=== PATIENT | male | born 1940 | race Asian ===

== ENCOUNTER 2016-08-24 13:18 | Inpatient (IN) | payer MEDICAID, OTHER ==
[~2016-08-24] VITALS: Ht 154.9 cm; Wt 53.5 kg
[2016-08-24] MEDS ORDERED: ASPI-664 PO (14:25)
[2016-08-24] MEDS ORDERED: LOSA1TAB19 PO (14:25)
[2016-08-24] MEDS ORDERED: TELM40TA3 PO (14:25)
--- NOTE | 2016-08-24 14:31 | RADRPT ---
PROCEDURE: CT Brain without contrast. CLINICAL INDICATION: Weakness status post fall. Possible stroke. TECHNIQUE: A CT of the brain was performed on a multidetector CT scanner utilizing axial sections from the skull base through the vertex without contrast. Images were reviewed on a high-resolution [employer] workstation. Exam CTDI = 44.77 mGy and the DLP = 720.23 mGy-cm. One or more of the following dose reduction techniques were used: Automated exposure control Adjustment of the mA and/or kV according to patient size. Use of iterative reconstruction technique. COMPARISON: None available FINDINGS: Mild diffuse cerebral and cerebellar atrophy with a slight central predominance is present. There i s proportionate dilatation of the ventricular system and sulci in a symmetric fashion. There is prom inence of the extraaxial spaces secondary to atrophy. There is no evidence of intracranial hemorrhag e, mass effect or midline shift. There is a small focus of chronic lacunar infarct in the left basal ganglia. No abnormal intra-axial or extra-axial fluid collections are seen. The density of the bra in is normal and the garcía/white matter differentiation is well preserved. Mild patchy diffuse deep white matter microangiopathic ischemic change is seen. The osseous structures are unremarkable. There is mild mucosal thickening in the ethmoid air cells.. Vascular calcifications are identified. IMPRESSION: 1. No intracranial hemorrhage, mass effect or midline shift. 2. Mild generalized atrophy with a slight central predominance. Mild microangiopathic ischemic vaishali nge. Small chronic lacunar infarct in the left basal ganglia. 3. Intracranial atherosclerosis. RPTAT: BB .Heidi Gordillo MD, MD Date Time Electronically viewed and signed by .Heidi Gordillo MD, on 08/24/2016 14:31 .O/
[2016-08-24 14:42] LABS: ADD SCAN DIFF NO
[2016-08-24 14:46] LABS: HEMOGLOBIN 12.2 g/dl (14.0-18.0); RED BLOOD COUNT 3.62 10^6/ul (4.70-6.10); WHITE BLOOD COUNT 12.9 10^3/ul (4.8-10.8)
[2016-08-24 14:47] LABS: ABNORMAL IP MESSAGE 1; BASOPHIL # 0.1 10^3/ul (0.0-0.1); BASOPHILS % 0.8 % (0.0-2.0); EOSINOPHILS # 0.3 10^3/ul (0.0-0.5); EOSINOPHILS % 2.5 % (0.0-7.0); HEMATOCRIT 34.8 % (42.0-52.0); LYMPHOCYTES # 1.5 10^3/ul (0.8-2.9); LYMPHOCYTES % 11.4 % (15.0-51.0); MEAN CORPUSCULAR HEMOGLOBIN 33.7 pg (29.0-33.0); MEAN CORPUSCULAR HGB CONC 35.1 g/dl (32.0-37.0); MEAN CORPUSCULAR VOLUME 96.1 fl (82.0-101.0); MEAN PLATELET VOLUME 8.5 fl (7.4-10.4); MONOCYTES % 15.7 % (0.0-11.0); NEUTROPHIL # 8.9 10^3/ul (1.6-7.5); NEUTROPHILS % 69.1 % (39.0-77.0); PLATELET COUNT 302 10^3/UL (140-415); RED CELL DISTRIBUTION WIDTH 11.9 % (11.5-14.5)
--- NOTE | 2016-08-24 14:57 | RADRPT ---
PROCEDURE: XR Chest. CLINICAL INDICATION: Cerebrovascular accident. TECHNIQUE: Single frontal view. COMPARISON: None. FINDINGS: The lungs are clear. The heart size is normal. There is calcification in the aorta consistent with atherosclerosis. There is no pleural effusion. There is no pneumothorax. IMPRESSION: 1. Atherosclerosis. 2. Otherwise normal chest radiograph. RPTAT: QQ .Alan Monroe MD, MD Date Time Electronically viewed and signed by .Alan Monroe MD, MD on 08/24/2016 14:57 .R/
[2016-08-24 15:01] LABS: INR 1.07; PROTIME 13.9 Sec (12.2-14.2); PT RATIO 1.1
[2016-08-24 15:02] LABS: PARTIAL THROMBOPLASTIN TIME 34.1 Sec (25.0-35.0)
[2016-08-24 15:04] LABS: BLOOD UREA NITROGEN 13 mg/dl (7-20); CALCIUM 9.5 mg/dl (8.4-10.2); CARBON DIOXIDE 26 mmol/L (21-31); CHLORIDE 97 mmol/L (97-110); CREATININE 0.84 mg/dl (0.61-1.24); GLUCOSE 111 mg/dl (70-220); POTASSIUM 3.5 mmol/L (3.5-5.1)
[2016-08-24 15:16] LABS: TROPONIN-I < 0.012 ng/ml (0.00-0.12)
--- NOTE | 2016-08-24 15:22 | ERD ---
ER Documentation Chief Complaint Date/Time DATE: 08/24/16 TIME: 15:19 Chief Complaint Complains of right knee pain after a fall HPI This 75-year-old male who presents the emergency department today with his family for concerns of some right knee pain after a fall and some right-sided weakness. Patient's family states that the patient had been walking with a cane but he has been having some increased right-sided weakness for the past 3 weeks and was crawling on the floor when he went to go to the bathroom and he got up and felt dizzy and fell. Family that he goes back and forth between the and the [facility]. Denies any nausea vomiting, fevers or chills. ROS All systems reviewed and are negative except as per history of present illness. Medications Home Meds Reported Medications Telmisartan/Hydrochlorothiazid (Micardis Hct 40-12.5 mg Tablet) 1 Each Tablet, 1 EACH PO DAILY, TAB 08/24/16 Losartan-Hydrochlorothiazide (Losartan-HCTZ) 50-12.5 Mg Tab, 1 TAB PO DAILY, TAB 08/24/16 Aspirin* (Aspirin* EC) 81 Mg Tablet.dr, 81 MG PO DAILY, TAB 08/24/16 Telmisartan (Telmisartan) 40 Mg Tablet, 40 MG PO DAILY, TAB 08/24/16 Allergies Allergies: Coded Allergies: No Known Allergy (Unverified , 08/24/16) PMhx/Soc History of Surgery: No (EYE) Anesthesia Reaction: No Hx Neurological Disorder: Yes (MUSCLE WEAKNESS) Hx Respiratory Disorders: No Hx Cardiac Disorders: Yes (HTN) Hx Psychiatric Problems: No Hx Miscellaneous Medical Probl: Yes (PROSTATE, MUSCLE WEAKNESS) Hx Alcohol Use: Yes Hx Substance Use: No Hx Tobacco Use: No Smoking Status: Unknown if ever smoked Physical Exam Vitals Vital Signs Date Time Temp Pulse Resp B/P Pulse Ox O2 Delivery O2 Flow Rate FiO2 08/24/16 18:20 98.7 65 16 116/57 100 Nasal Cannula 1.0 08/24/16 15:17 99.0 70 16 125/52 100 Nasal Cannula 1.0 08/24/16 14:37 Nasal Cannula 1 08/24/16 13:27 99.0 88 20 151/67 98 Physical Exam Const: Sitting in wheelchair, no acute distress Head: Atraumatic Eyes: Normal Conjunctiva. PERRLA. EOM intact ENT: Normal External Ears, Nose and Mouth. Neck: Full range of motion..~ No meningismus. Resp: Clear to auscultation bilaterally Cardio: Regular rate and rhythm, no murmurs Abd: Soft, non tender, non distended. Normal bowel sounds Skin: No petechiae or rashes Back: No midline or flank tenderness Ext: No cyanosis, or edema Neur: Awake and alert. Cranial nerves II through XII intact Psych: Normal Mood and Affect Result Diagram: 08/24/16 1430 08/24/16 1430 Results 24 hrs Laboratory Tests Test 08/24/16 14:30 08/24/16 14:32 08/24/16 14:55 White Blood Count 12.910^3/ul Red Blood Count 3.6210^6/ul Hemoglobin 12.2g/dl Hematocrit 34.8% Mean Corpuscular Volume 96.1fl Mean Corpuscular Hemoglobin 33.7pg Mean Corpuscular Hemoglobin Concent 35.1g/dl Red Cell Distribution Width 11.9% Platelet Count 26242^3/UL Mean Platelet Volume 8.5fl Neutrophils % 69.1% Lymphocytes % 11.4% Monocytes % 15.7% Eosinophils % 2.5% Basophils % 0.8% Nucleated Red Blood Cells % 0.0/100WBC Neutrophils # 8.910^3/ul Lymphocytes # 1.510^3/ul Monocytes # 2.010^3/ul Eosinophils # 0.310^3/ul Basophils # 0.110^3/ul Nucleated Red Blood Cells # 0.010^3/ul Prothrombin Time 13.9Sec Prothrombin Time Ratio 1.1 INR International Normalized Ratio 1.07 Activated Partial Thromboplast Time 34.1Sec Sodium Level 128mmol/L Potassium Level 3.5mmol/L Chloride Level 97mmol/L Carbon Dioxide Level 26mmol/L Anion Gap 9 Blood Urea Nitrogen 13mg/dl Creatinine 0.84mg/dl Glucose Level 111mg/dl Hemoglobin A1c 5.5% Calcium Level 9.5mg/dl Troponin I < 0.012ng/ml Bedside Glucose 118mg/dL Urine Color YELLOW Urine Clarity CLOUDY Urine pH 6.0 Urine Specific [place] 1.015 Urine Ketones NEGATIVEmg/dL Urine Nitrite NEGATIVEmg/dL Urine Bilirubin NEGATIVEmg/dL Urine Urobilinogen NEGATIVEmg/dL Urine Leukocyte Esterase 3+Cyrus/ul Urine Microscopic RBC 13/HPF Urine Microscopic WBC > 182/HPF Urine Bacteria FEW/HPF Urine Mucus FEW/HPF Urine Yeast (Budding) MODERATE/HPF Urine Hemoglobin 1+mg/dL Urine Glucose 1+mg/dL Urine Total Protein NEGATIVEmg/dl Urine Opiates Screen Negative Urine Barbiturates Negative Urine Amphetamines Screen Negative Urine Benzodiazepines Screen Negative Urine Cocaine Screen Negative Urine Cannabinoids Negative Current Medications Medications (Trade) Dose Ordered Sig/Mick Route PRN Reason Start Time Stop Time Status Last Admin Dose Admin Morphine Sulfate (morphine) 4 mg ONCE STAT IV 08/24/16 15:32 08/24/16 15:34 DC 08/24/16 16:06 Ondansetron HCl 4 mg 4 mg ONCE STAT IV 08/24/16 15:32 08/24/16 15:34 DC 08/24/16 16:05 Ceftriaxone Sodium 50 ml @ 100 mls/hr ONCE ONCE IVPB 08/24/16 16:30 08/24/16 16:59 DC 08/24/16 16:11 Sodium Chloride (NS) 1,000 ml @ 1,000 mls/hr Q1H ONCE IV 08/24/16 16:30 08/24/16 17:29 DC 08/24/16 16:11 AGNOSTIC IMAGING REPORT Patient: KIRIT MCNAIR : 1940 Age: 75 Sex: M MR #: [id number] DOS: 08/24/16 1400 Ordering MD: GRADY KEYS PA-C Location: [facility] Room/Bed: PROCEDURE: CT Brain without contrast. CLINICAL INDICATION: Weakness status post fall. Possible stroke. TECHNIQUE: A CT of the brain was performed on a multidetector CT scanner utilizing axial sections from the skull base through the vertex without contrast. Images were reviewed on a high-resolution PACS workstation. Exam CTDI = 44.77 mGy and the DLP = 720.23 mGy-cm. One or more of the following dose reduction techniques were used: Automated exposure control Adjustment of the mA and/or kV according to patient size. Use of iterative reconstruction technique. COMPARISON: None available FINDINGS: Mild diffuse cerebral and cerebellar atrophy with a slight central predominance is present. There is proportionate dilatation of the ventricular system and sulci in a symmetric fashion. There is prominence of the extraaxial spaces secondary to atrophy. There is no evidence of intracranial hemorrhage, mass effect or midline shift. There is a small focus of chronic lacunar infarct in the left basal ganglia. No abnormal intra-axial or extra-axial fluid collections are seen. The density of the brain is normal and the garcía/white matter differentiation is well preserved. Mild patchy diffuse deep white matter microangiopathic ischemic change is seen. The osseous structures are unremarkable. There is mild mucosal thickening in the ethmoid air cells.. Vascular calcifications are identified. IMPRESSION: 1. No intracranial hemorrhage, mass effect or midline shift. 2. Mild generalized atrophy with a slight central predominance. Mild microangiopathic ischemic change. Small chronic lacunar infarct in the left basal ganglia. 3. Intracranial atherosclerosis. RPTAT: BB .Heidi Gordillo MD, MD Date Time Electronically viewed and signed by .Heidi Gordillo MD, MD on 08/24/2016 14:31 .O/ CC: GRADY KEYS PA-C DIAGNOSTIC IMAGING REPORT Patient: KIRIT MCNAIR : 1940 Age: 75 Sex: M MR #: [id number] DOS: 08/24/16 1400 Ordering MD: GRADY KEYS PA-C Location: [facility] Room/Bed: PROCEDURE: XR Chest. CLINICAL INDICATION: Cerebrovascular accident. TECHNIQUE: Single frontal view. COMPARISON: None. FINDINGS: The lungs are clear. The heart size is normal. There is calcification in the aorta consistent with atherosclerosis. There is no pleural effusion. There is no pneumothorax. IMPRESSION: 1. Atherosclerosis. 2. Otherwise normal chest radiograph. RPTAT: QQ .Alan Monroe MD, Date Time Electronically viewed and signed by .Alan Monroe MD, on 08/24/2016 14:57 .R/ CC: GRADY KEYS PA-C DIAGNOSTIC IMAGING REPORT Patient: ISHAN MCNAIR : 1940 Age: 75 Sex: M MR #: [id number] DOS: 08/24/16 0000 Ordering MD: GRADY KEYS PA-C Location: [facility] Room/Bed: PROCEDURE: XR Knee. CLINICAL INDICATION: Trauma/fall TECHNIQUE: Three views of the right knee are available for review. COMPARISON: None available FINDINGS: Marginal osteophyte formation and subchondral sclerosis seen at all 3 compartments. Mild to moderate narrowing is seen at the lateral femorotibial compartment with interval progression. Moderate to severe narrowing is seen at the medial and patellofemoral compartments. No acute osseous abnormality. Large joint effusion. IMPRESSION: 1. 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 2. No radiographic evidence for fracture. 3. Large joint effusion. RPTAT: PP .Wayne Shafer MD, MD Date Time Electronically viewed and signed by .Wayne Shafer MD, MD on 08/24/2016 15:42 .d/ CC: GRADY KEYS PA-C Procedures/MDM This 75-year-old male who presents to the emergency department today with his family for concerns of right knee pain after fall and some increasing right- sided weakness. Patient does not appear to have focal neurologic deficits on physical exam. I did not assess his gait as he was sitting in a wheelchair. I discussed the patient with Dr. Blake and he recommended a stroke workup. Laboratory workup shows a mildly elevated white blood cell count of 12.9. His hemoglobin and hematocrit is mildly decreased. Platelets are within normal limits. Sodium was decreased at 128. Otherwise electro lites are within normal limits. Glucose within normal limits. Troponin is negative Coags are within normal limits UA shows 3+ leukocyte esterase negative nitrites EKG read and interpreted by Dr. Blake at [address] elevation. No QT prolongation. Sinus rhythm with first-degree AV block. No evidence of acute GA , PE, pericarditis Head CT noncontrast shows no intracranial hemorrhage, mass-effect or midline shift. There is mild generalized atrophy with a slight central predominance. There is mild microangiopathic ischemic change. There is a small chronic lacunar infarct in the left basal ganglia. There is intracranial atherosclerosis. Chest x-ray shows atherosclerosis otherwise normal chest x-ray. There is no pneumothorax or pleural effusion. Lungs are clear. Images of the right knee show tricompartmental arthrosis noting moderate to severe narrowing of the medial patellofemoral compartments. There is no radiographic evidence of fracture. There is a large joint effusion Patient was given IV fluids, morphine and Zofran here in the emergency department. He was also given Rocephin for his urinary tract infection. I discussed the lab findings with Dr. Mitchell and he has agreed to admit the patient . Patient symptoms at this time is consistent with 1) urinary tract infection 2) hyponatremia with dehydration 3) fall with knee pain Any further orders placed will be placed by Dr. Mitchell or the admitting physician. Departure Diagnosis: Primary Impression: UTI (urinary tract infection) Urinary tract infection type: site unspecified Hematuria presence: without hematuria Qualified Code: N39.0 - Urinary tract infection without hematuria, site unspecified Additional Impression: Dehydration with hyponatremia Condition: Fair GRADY KEYS PA-C Aug 24, 2016 15:22
[2016-08-24] MEDS ORDERED: ONDANSETRON 4 MG INJ IV STA (15:32)
[2016-08-24] MEDS ORDERED: morphine 4 MG/ML VIAL IV STA (15:32)
--- NOTE | 2016-08-24 15:42 | RADRPT ---
PROCEDURE: XR Knee. CLINICAL INDICATION: Trauma/fall TECHNIQUE: Three views of the right knee are available for review. COMPARISON: None available FINDINGS: Marginal osteophyte formation and subchondral sclerosis seen at all 3 compartments. Mild to moderat e narrowing is seen at the lateral femorotibial compartment with interval progression. Moderate to severe narrowing is seen at the medial and patellofemoral compartments. No acute osseous abnormalit y. Large joint effusion. IMPRESSION: 1. 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 2. No radiographic evidence for fracture. 3. Large joint effusion. RPTAT: PP .Wayne Shafer MD, Date Time Electronically viewed and signed by .Wayne Shafer MD, MD on 08/24/2016 15:42 .d/
[2016-08-24 15:46] LABS: ADD UMIC YES; UR ASCORBIC ACID NEGATIVE (NEGATIVE); UR BACTERIA FEW /HPF (NONE SEEN); UR BILIRUBIN (Dip) NEGATIVE (NEGATIVE); UR BLOOD (Dip) 1+ mg/dL (NEGATIVE); UR BUDDING YEAST MODERATE /HPF (NONE SEEN); UR CLARITY CLOUDY (CLEAR); UR COLOR YELLOW (YELLOW); UR GLUCOSE (Dip) 1+ mg/dL (NEGATIVE); UR KETONES (Dip) NEGATIVE (NEGATIVE); UR LEUKOCYTE ESTERASE (Dip) 3+ Leu/ul (NEGATIVE); UR MUCUS FEW /HPF (NONE SEEN); UR NITRITE (Dip) NEGATIVE (NEGATIVE); UR NONSQUAMOUS EPITHELIAL CELL 2 /HPF (NONE SEEN); UR RBC 13 /HPF (0-5); UR SPECIFIC GRAVITY (Dip) 1.015 (1.003-1.030); UR TOTAL PROTEIN (Dip) NEGATIVE (NEGATIVE); UR UROBILINOGEN (Dip) NEGATIVE (NEGATIVE)
[2016-08-24 15:49] LABS: BARBITURATES Negative (NEGATIVE)
[2016-08-24 15:50] LABS: BENZODIAZEPINES Negative (NEGATIVE); CANNABINOIDS Negative (NEGATIVE); COCAINE Negative (NEGATIVE); OPIATES Negative (NEGATIVE)
[2016-08-24] MEDS ORDERED: SOD CHLORIDE 0.9% 1,000 ML IV ONE (16:30)
[2016-08-24] MEDS ORDERED: CEFTRIAXONE 1 GM/50 ML (PMX) 50 ML IVPB ONE (16:30)
[2016-08-24] MEDS ORDERED: TELM1TAB PO (16:51)
[2016-08-24 18:04] LABS: UR WBC CLUMPS MODERATE /HPF (NONE SEEN)
[2016-08-24 18:20] VITALS: TEMP 98.7
--- NOTE | 2016-08-24 20:13 | HP ---
Date/Time of Note Date/Time of Note DATE: 08/24/16 TIME: 20:04 Assessment/Plan VTE Prophylaxis VTE Prophylaxis Intervention: LMWH Assessment/Plan Assessment/Plan 75-year-old male brought in by family because of weakness and recurrent falls with the followin. Generalized weakness with recurrent falls 2. Bilateral osteoarthritis of the knee with large knee effusion on the right 3. Previous CVA rule out acute insult 4. Urinary tract infection (bacteria / yeast) 5. Hyponatremia possibly symptomatic 6. Megaloblastic anemia 7. Hypertension with good control Plan: Patient will be admitted for treatment of urinary tract infection, IV hydration , and physical therapy evaluation. I will order an MRI of the brain to rule out an acute stroke, we will get creatinine kinase levels as well as a thyroid function test Hyponatremia could have been precipitated from his antihypertensives, we will monitor in-house and hold hydrochlorothiazide for now We will speak with orthopedic surgery for possible joint injection/will provide aspiration of the right knee We will provide pain control and supportive care as needed Further intervention per clinical course Prophylaxis: Lovenox / PPI HPI/ROS Admit Date/Time Admit Date/Time August 24, 2016 Hx of Present Illness 75-year-old male who was brought in by his family because of right-sided knee and shoulder pain and recurrent falls. Per report the patient is usually able to ambulate with a walker but over the last few days he is being getting weaker and weaker and at this point cannot really walk. Family is requesting that patient may need rehab. The real reason for patient is having ability to walk is not clear if not clear if he is having pain or he is just weak. He has had no fever, he denies chest pain, denies shortness of breath, denies palpitation. He did have a history of a fall sometime back. ROS 12 point review if systems was done and pertinent findings are as noted. PMH/Family/Social Past Medical History * Hypertension * BPH Past Surgical History * Eye surgery Family History Significant Family History: no pertinent family hx Social History Alcohol Use: none Smoking Status: Former smoker Exam/Review of Systems Vital Signs Vitals VS - Last 72 Hours, by Label Date Time Temp Pulse Resp B/P Pulse Ox O2 Delivery O2 Flow Rate FiO2 08/24/16 18:20 98.7 65 16 116/57 100 Nasal Cannula 1.0 08/24/16 15:17 99.0 70 16 125/52 100 Nasal Cannula 1.0 08/24/16 14:37 Nasal Cannula 1 08/24/16 13:27 99.0 88 20 151/67 98 Vital Signs Date Time Temp Pulse Resp B/P Pulse Ox O2 Delivery O2 Flow Rate FiO2 08/24/16 18:20 98.7 65 16 116/57 100 Nasal Cannula 1.0 Exam Exam Constitutional: alert, oriented, elderly Head: atraumatic, normocephalic Neck: non-tender, supple Respiratory: clear to auscultation Cardiovascular: regular rate and rhythm Gastrointestinal: S/ NT / ND / +BS Extremities: no edema, good radial pulses Neurologic: Patient is able to move all 4 extremities, has good resident surgeon bilaterally , gait was not evaluated. Labs Result Diagram: 08/24/16 1430 08/24/16 1430 Procedures Procedures Laboratory Tests Test 08/24/16 14:30 08/24/16 14:32 08/24/16 14:55 White Blood Count 12.910^3/ul Red Blood Count 3.6210^6/ul Hemoglobin 12.2g/dl Hematocrit 34.8% Mean Corpuscular Volume 96.1fl Mean Corpuscular Hemoglobin 33.7pg Mean Corpuscular Hemoglobin Concent 35.1g/dl Red Cell Distribution Width 11.9% Platelet Count 28936^3/UL Mean Platelet Volume 8.5fl Neutrophils % 69.1% Lymphocytes % 11.4% Monocytes % 15.7% Eosinophils % 2.5% Basophils % 0.8% Nucleated Red Blood Cells % 0.0/100WBC Neutrophils # 8.910^3/ul Lymphocytes # 1.510^3/ul Monocytes # 2.010^3/ul Eosinophils # 0.310^3/ul Basophils # 0.110^3/ul Nucleated Red Blood Cells # 0.010^3/ul Prothrombin Time 13.9Sec Prothrombin Time Ratio 1.1 INR International Normalized Ratio 1.07 Activated Partial Thromboplast Time 34.1Sec Sodium Level 128mmol/L Potassium Level 3.5mmol/L Chloride Level 97mmol/L Carbon Dioxide Level 26mmol/L Anion Gap 9 Blood Urea Nitrogen 13mg/dl Creatinine 0.84mg/dl Glucose Level 111mg/dl Hemoglobin A1c 5.5% Calcium Level 9.5mg/dl Troponin I < 0.012ng/ml Bedside Glucose 118mg/dL Urine Color YELLOW Urine Clarity CLOUDY Urine pH 6.0 Urine Specific [place] 1.015 Urine Ketones NEGATIVEmg/dL Urine Nitrite NEGATIVEmg/dL Urine Bilirubin NEGATIVEmg/dL Urine Urobilinogen NEGATIVEmg/dL Urine Leukocyte Esterase 3+Cyrus/ul Urine Microscopic RBC 13/HPF Urine Microscopic WBC > 182/HPF Urine Bacteria FEW/HPF Urine Mucus FEW/HPF Urine Yeast (Budding) MODERATE/HPF Urine Hemoglobin 1+mg/dL Urine Glucose 1+mg/dL Urine Total Protein NEGATIVEmg/dl Urine Opiates Screen Negative Urine Barbiturates Negative Urine Amphetamines Screen Negative Urine Benzodiazepines Screen Negative Urine Cocaine Screen Negative Urine Cannabinoids Negative Current Medications Medications (Trade) Dose Ordered Sig/Mick Route PRN Reason Start Time Stop Time Status Last Admin Dose Admin Morphine Sulfate (morphine) 4 mg ONCE STAT IV 08/24/16 15:32 08/24/16 15:34 DC 08/24/16 16:06 4 MG Ondansetron HCl 4 mg 4 mg ONCE STAT IV 08/24/16 15:32 08/24/16 15:34 DC 08/24/16 16:05 4 MG Ceftriaxone Sodium 50 ml @ 100 mls/hr ONCE ONCE IVPB 08/24/16 16:30 08/24/16 16:59 DC 08/24/16 16:11 100 MLS/HR Sodium Chloride (NS) 1,000 ml @ 1,000 mls/hr Q1H ONCE IV 08/24/16 16:30 08/24/16 17:29 DC 08/24/16 16:11 1,000 MLS/HR PROCEDURE: XR Knee. CLINICAL INDICATION: Trauma/fall TECHNIQUE: Three views of the right knee are available for review. COMPARISON: None available FINDINGS: Marginal osteophyte formation and subchondral sclerosis seen at all 3 compartments. Mild to moderate narrowing is seen at the lateral femorotibial compartment with interval progression. Moderate to severe narrowing is seen at the medial and patellofemoral compartments. No acute osseous abnormality. Large joint effusion. IMPRESSION: 1. 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 2. No radiographic evidence for fracture. 3. Large joint effusion. RPTAT: PP .Wayne Shafer MD, Date Time Electronically viewed and signed by .Wayne Shafer MD, MD on 08/24/2016 15:42 .d/ CC: GRADY KEYS PA-C PROCEDURE: XR Chest. CLINICAL INDICATION: Cerebrovascular accident. TECHNIQUE: Single frontal view. COMPARISON: None. FINDINGS: The lungs are clear. The heart size is normal. There is calcification in the aorta consistent with atherosclerosis. There is no pleural effusion. There is no pneumothorax. IMPRESSION: 1. Atherosclerosis. 2. Otherwise normal chest radiograph. RPTAT: QQ .Alan Monroe MD, Date Time Electronically viewed and signed by .Alan Monroe MD, on 08/24/2016 14:57 .R/ CC: GRADY KEYS PA-C PROCEDURE: CT Brain without contrast. CLINICAL INDICATION: Weakness status post fall. Possible stroke. TECHNIQUE: A CT of the brain was performed on a multidetector CT scanner utilizing axial sections from the skull base through the vertex without contrast. Images were reviewed on a high-resolution PACS workstation. Exam CTDI = 44.77 mGy and the DLP = 720.23 mGy-cm. One or more of the following dose reduction techniques were used: Automated exposure control Adjustment of the mA and/or kV according to patient size. Use of iterative reconstruction technique. COMPARISON: None available FINDINGS: Mild diffuse cerebral and cerebellar atrophy with a slight central predominance is present. There is proportionate dilatation of the ventricular system and sulci in a symmetric fashion. There is prominence of the extraaxial spaces secondary to atrophy. There is no evidence of intracranial hemorrhage, mass effect or midline shift. There is a small focus of chronic lacunar infarct in the left basal ganglia. No abnormal intra-axial or extra-axial fluid collections are seen. The density of the brain is normal and the garcía/white matter differentiation is well preserved. Mild patchy diffuse deep white matter microangiopathic ischemic change is seen. The osseous structures are unremarkable. There is mild mucosal thickening in the ethmoid air cells.. Vascular calcifications are identified. IMPRESSION: 1. No intracranial hemorrhage, mass effect or midline shift. 2. Mild generalized atrophy with a slight central predominance. Mild microangiopathic ischemic change. Small chronic lacunar infarct in the left basal ganglia. 3. Intracranial atherosclerosis. RPTAT: BB .Heidi Gordillo MD, MD Date Time Electronically viewed and signed by .Heidi Gordillo MD, MD on 08/24/2016 14:31 .O/ CC: GRADY KEYS PA-C, [place] M. Aug 24, 2016 20:12
[2016-08-24] MEDS ORDERED: SOD CHLORIDE 0.9% 1,000 ML IV SCH (20:30)
[2016-08-24] MEDS ORDERED: ONDANSETRON 4 MG INJ IV PRN (20:30)
[2016-08-24 21:04] VITALS: BP 152/68; PULSE 68; RESP 16; Ht 154.9 cm; Wt 53.5 kg
[2016-08-24] MEDS: FLUCONAZOLE 200 MG/NS (PMX) 100 ML IVPB SCH (22:06)
[2016-08-24 22:20] VITALS: BP 134/60; RESP 18
[2016-08-24 23:59] LABS: CREATINE KINASE 102 IU/L (23-200)
[2016-08-25] VITALS (7 sets, daily range): BP systolic 133–184; BP diastolic 63–82; PULSE 67–82; RESP 18–20
[2016-08-25 00:29] LABS: CK-MB 1.25 ng/ml (0.0-2.4); TROPONIN-I < 0.012 ng/ml (0.00-0.12)
[2016-08-25] MEDS: PANTOPRAZOLE (EC) 40 MG TAB PO SCH (05:17)
[2016-08-25] MEDS ORDERED: hydrALAzine 20 MG INJ IV ONE (08:00)
[2016-08-25] MEDS ORDERED: hydrALAzine 20 MG INJ ONE (08:02)
[2016-08-25] MEDS: ASPIRIN (EC) 81 MG TAB PO SCH (08:03)
[2016-08-25] MEDS: LOSARTAN 50 MG TAB PO SCH (08:04)
[2016-08-25] MEDS: ENOXAPARIN 40 MG/0.4 ML SYG SC SCH (08:23)
--- NOTE | 2016-08-25 10:36 | RADRPT ---
PROCEDURE: Carotid ultrasound CLINICAL INDICATION: Stroke, carotid bruits TECHNIQUE: Cunningham scale, color doppler, spectral doppler ultrasound of the bilateral carotid and escobar tebral arteries. This study indirectly references the measurement of the distal ICA diameter as the denominator for s tenosis measurement. Validated velocity measurements with angiographic measurements, velocity criter ia are extrapolated from diameter data as defined by: *Cartoid artery stenosis: cunningham-scale and Doppl er US diagnosis. Society of Radiologists in Ultrasound Consensus Conference. Radiology 2003; 229: 34 0-346. SRU Consensus Conference Criteria for the Diagnosis of Carotid Artery Stenosis* Degree of Stenosis, % ICA PSV, cm/sec Plaque Estimate, % ICA/CCA PSV Ratio Normal <125 None <2.0 <50 <125 <50 <2.0 50 69 125-230 >50 2.0-4.0 >70 but less than near occlusion >230 >50 <4.0 Near occlusion High, low, or undetectable Visible Variable Total occlusion Undetectable Visible, no detectable lumen Not applicable COMPARISON: No prior studies are available for comparison. FINDINGS: Location Right [id number] cm/sec Prox ICA 69 cm/sec Mid ICA48 cm/sec Dist ICA70 cm/sec ACR311 cm/sec ICA/CCA0.9 Left CCA97 cm/sec Prox ICA 92 cm/sec Mid ICA93 cm/sec Dist ICA67 cm/sec ABS156 cm/sec ICA/CCA1.0 Plaque burden: Small plaques are present involving both internal carotid arteries. Antegrade flow is seen within the vertebral arteries bilaterally. IMPRESSION: Plaques are present within both internal carotid arteries without evidence of flow acceleration to s uggest a hemodynamically significant stenosis; less than 50% stenosis bilaterally. RPTAT: AADD .Rito Pacheco MD, Date Time Electronically viewed and signed by .Rito Pacheco MD, on 08/25/2016 10:35 .B/
[2016-08-25 10:59] LABS: ALBUMIN 4.4 g/dl (3.3-4.9); BILIRUBIN,INDIRECT 0.5 mg/dl (0-1.1); BILIRUBIN,TOTAL 0.5 mg/dl (0.2-1.3); CALCIUM 9.4 mg/dl (8.4-10.2); CHOL/HDL RATIO 4.2 RATIO; CREATININE 0.85 mg/dl (0.61-1.24); MAGNESIUM 2.1 mg/dl (1.7-2.5); POTASSIUM 3.8 mmol/L (3.5-5.1); TOTAL PROTEIN 7.4 g/dl (6.1-8.1)
[2016-08-25 11:18] LABS: ADD SCAN DIFF NO
--- NOTE | 2016-08-25 11:19 | RADRPT ---
PROCEDURE: Renal US. CLINICAL INDICATION: Renal dysfunction. TECHNIQUE: Multiple sonographic images of the kidneys and urinary bladder were obtained. The imag es were reviewed on a PACS workstation. COMPARISON: No prior studies are available for comparison. FINDINGS: The right kidney measures 10.7 x 4.5 cm. The left kidney measures 11.0 x 5.2 cm. There is no renal mass. There is no hydronephrosis. There is no renal calculus. Renal parenchymal thickness is normal bilaterally. Echogenicity is normal bilaterally. The perirenal regions are normal with no fluid collection or mass. The urinary bladder is unremarkable. IMPRESSION: 1. Unremarkable renal ultrasound. RPTAT: QQ .Alan Monroe MD, MD Date Time Electronically viewed and signed by .Alan Monroe MD, on 08/25/2016 11:19 .R/
[2016-08-25 11:24] LABS: BASOPHIL # 0.1 10^3/ul (0.0-0.1); EOSINOPHILS % 8.6 % (0.0-7.0); HEMATOCRIT 38.6 % (42.0-52.0); HEMOGLOBIN 13.3 g/dl (14.0-18.0); LYMPHOCYTES # 1.9 10^3/ul (0.8-2.9); LYMPHOCYTES % 16.4 % (15.0-51.0); MEAN CORPUSCULAR HEMOGLOBIN 33.4 pg (29.0-33.0); MEAN CORPUSCULAR HGB CONC 34.5 g/dl (32.0-37.0); MEAN PLATELET VOLUME 9.3 fl (7.4-10.4); MONOCYTE # 1.1 10^3/ul (0.3-0.9); MONOCYTES % 9.7 % (0.0-11.0); NEUTROPHIL # 7.3 10^3/ul (1.6-7.5); PLATELET COUNT 306 10^3/UL (140-415); RED BLOOD COUNT 3.98 10^6/ul (4.70-6.10); RED CELL DISTRIBUTION WIDTH 12.1 % (11.5-14.5); WHITE BLOOD COUNT 11.5 10^3/ul (4.8-10.8)
[2016-08-25 11:34] LABS: THYROID STIMULATING HORMONE 2.52 MIU/L (0.465-4.680)
--- NOTE | 2016-08-25 12:14 | PN ---
Date/Time of Note Date/Time of Note DATE: 08/25/16 TIME: 12:08 Assessment/Plan VTE Prophylaxis VTE Prophylaxis Intervention: LMWH Lines/Catheters IV Catheter Type (from Nrsg): Peripheral IV Assessment/Plan Assessment/Plan 75-year-old male brought in by family because of weakness and recurrent falls with the followin. Generalized weakness with recurrent falls 2. Bilateral osteoarthritis of the knee with large knee effusion on the right 3. Previous CVA rule out acute insult 4. Urinary tract infection (bacteria / yeast) 5. Hyponatremia possibly symptomatic 6. Megaloblastic anemia 7. Hypertension with good control PLAN: * Continue abx * F/u MRI / order CT abd /pevis to eval fecal incontinence / R knee aspiration and analysis * PT eval pending * @D echo to eval cardiac murmur * Continue to hold diuretics * Supportive care / fall precautions / pain control Subjective 24 Hr Interval Summary Free Text/Dictation Patient reporting pain in R knee and is saying he cannot control bowel function. ?duration, patient may also be confused. Exam/Review of Systems Vital Signs Vitals Vital Signs Date Time Temp Pulse Resp B/P Pulse Ox O2 Delivery O2 Flow Rate FiO2 08/25/16 07:54 98.3 70 18 184/82 100 08/24/16 23:00 Nasal Cannula 2.0 Intake and Output 08/24/16 08/24/16 08/25/16 15:00 23:00 07:00 Intake Total 960 ml Output Total 1510 ml Balance -550 ml Exam Constitutional: alert, frail, oriented (??) Psych: other (blank affect) Head: atraumatic, normocephalic Eyes: PERRL, No icteric ENMT: mucosa pink and moist Neck: non-tender, supple, No jvd Respiratory: clear to auscultation, diminished breath sounds Cardiovascular: murmurs/extra sounds, regular rate and rhythm Gastrointestinal: bowel sounds, soft, No distended, No rebound or guarding Extremities: other (zena Knees swollen, but R > L, mildly tender, non erythematous) Neurological: lethargic, No focal weakness Skin: No rash or lesions Results Result Diagram: 08/25/16 1027 08/25/16 1027 Results 24 hrs Laboratory Tests Test 08/24/16 14:30 08/24/16 14:32 08/24/16 14:55 08/24/16 23:25 White Blood Count 12.9 H Red Blood Count 3.62 L Hemoglobin 12.2 L Hematocrit 34.8 L Mean Corpuscular Volume 96.1 Mean Corpuscular Hemoglobin 33.7 H Mean Corpuscular Hemoglobin Concent 35.1 Red Cell Distribution Width 11.9 Platelet Count 302 Mean Platelet Volume 8.5 Neutrophils % 69.1 Lymphocytes % 11.4 L Monocytes % 15.7 H Eosinophils % 2.5 Basophils % 0.8 Nucleated Red Blood Cells % 0.0 Neutrophils # 8.9 H Lymphocytes # 1.5 Monocytes # 2.0 H Eosinophils # 0.3 Basophils # 0.1 Nucleated Red Blood Cells # 0.0 Prothrombin Time 13.9 Prothrombin Time Ratio 1.1 INR International Normalized Ratio 1.07 Activated Partial Thromboplast Time 34.1 Sodium Level 128 L Potassium Level 3.5 Chloride Level 97 Carbon Dioxide Level 26 Anion Gap 9 Blood Urea Nitrogen 13 Creatinine 0.84 Glucose Level 111 Hemoglobin A1c 5.5 Calcium Level 9.5 Troponin I < 0.012 < 0.012 Bedside Glucose 118 Urine Color YELLOW Urine Clarity CLOUDY A Urine pH 6.0 Urine Specific [place] 1.015 Urine Ketones NEGATIVE Urine Nitrite NEGATIVE Urine Bilirubin NEGATIVE Urine Urobilinogen NEGATIVE Urine Leukocyte Esterase 3+ H Urine Microscopic RBC 13 H Urine Microscopic WBC > 182 H Urine Bacteria FEW A Urine Mucus FEW A Urine Yeast (Budding) MODERATE A Urine Hemoglobin 1+ H Urine Glucose 1+ H Urine Total Protein NEGATIVE Urine Opiates Screen Negative Urine Barbiturates Negative Urine Amphetamines Screen Negative Urine Benzodiazepines Screen Negative Urine Cocaine Screen Negative Urine Cannabinoids Negative Creatine Kinase 102 Creatine Kinase Index 1.2 Creatinine Kinase MB (Mass) 1.25 Vitamin B12 Level 996 H Test 08/25/16 10:27 White Blood Count 11.5 H Red Blood Count 3.98 L Hemoglobin 13.3 L Hematocrit 38.6 L Mean Corpuscular Volume 97.0 Mean Corpuscular Hemoglobin 33.4 H Mean Corpuscular Hemoglobin Concent 34.5 Red Cell Distribution Width 12.1 Platelet Count 306 Mean Platelet Volume 9.3 Neutrophils % 64.0 Lymphocytes % 16.4 Monocytes % 9.7 Eosinophils % 8.6 H Basophils % 1.0 Nucleated Red Blood Cells % 0.0 Neutrophils # 7.3 Lymphocytes # 1.9 Monocytes # 1.1 H Eosinophils # 1.0 H Basophils # 0.1 Nucleated Red Blood Cells # 0.0 Sodium Level 128 L Potassium Level 3.8 Chloride Level 97 Carbon Dioxide Level 24 Anion Gap 11 Blood Urea Nitrogen 13 Creatinine 0.85 Glucose Level 96 Calcium Level 9.4 Magnesium Level 2.1 Total Bilirubin 0.5 Direct Bilirubin 0.00 Indirect Bilirubin 0.5 Aspartate Amino Transf (AST/SGOT) 28 Alanine Aminotransferase (ALT/SGPT) 31 Alkaline Phosphatase 74 Total Protein 7.4 Albumin 4.4 Triglycerides Level 81 Cholesterol Level 166 LDL Cholesterol, Calculated 111 HDL Cholesterol 39 Cholesterol/HDL Ratio 4.2 Folate Pending Thyroid Stimulating Hormone (TSH) Pending Medications Medications Current Medications Aspirin (Halfprin) 81 mg DAILY PO Last administered on 08/25/16 08:03; Admin Dose 81 MG; Start 08/25/16 at 09:00 Losartan Potassium 50 mg 50 mg DAILY PO Last administered on 08/25/16 08:04; Admin Dose 50 MG; Start 08/25/16 at 09:00 Ceftriaxone Sodium (Rocephin) 50 ml @ 100 mls/hr Q24H IVPB ; Start 08/25/16 at 16:00 Ondansetron HCl (Zofran Inj) 4 mg Q6H PRN IV NAUSEA AND/OR VOMITING; Start at 20:30 Acetaminophen/ Hydrocodone Bitart ([place] (5/325)) 1 tab Q6H PRN PO pain; Start 08/24/16 at 20:30 Pantoprazole (Protonix Tab) 40 mg DAILY@06 PO Last administered on 08/25/16 05 :17; Admin Dose 40 MG; Start 08/25/16 at 06:00 Enoxaparin Sodium 40 mg 40 mg DAILY SC Last administered on 08/25/16 08:23; Admin Dose 40 MG; Start 08/25/16 at 09:00 Fluconazole (Diflucan 200 Mg/ NS (Pmx)) 100 ml @ 100 mls/hr Q24H IVPB Last administered on 08/24/16 22:06; Admin Dose 100 MLS/HR; Start 08/24/16 at 21:15 Procedures Procedures PROCEDURE: Carotid ultrasound CLINICAL INDICATION: Stroke, carotid bruits TECHNIQUE: Cunningham scale, color doppler, spectral doppler ultrasound of the bilateral carotid and vertebral arteries. This study indirectly references the measurement of the distal ICA diameter as the denominator for stenosis measurement. Validated velocity measurements with angiographic measurements, velocity criteria are extrapolated from diameter data as defined by: *Cartoid artery stenosis: cunningham-scale and Doppler US diagnosis. Society of Radiologists in Ultrasound Consensus Conference. Radiology 2003; 229: 340-346. SRU Consensus Conference Criteria for the Diagnosis of Carotid Artery Stenosis* Degree of Stenosis, % ICA PSV, cm/sec Plaque Estimate, % ICA/CCA PSV Ratio Normal <125 None <2.0 <50 <125 <50 <2.0 50 69 125-230 >50 2.0-4.0 >70 but less than near occlusion >230 >50 <4.0 Near occlusion High, low, or undetectable Visible Variable Total occlusion Undetectable Visible, no detectable lumen Not applicable COMPARISON: No prior studies are available for comparison. FINDINGS: Location Right CCA 113 cm/sec Prox ICA 69 cm/sec Mid ICA 48 cm/sec Dist ICA 70 cm/sec ECA 148 cm/sec ICA/CCA 0.9 Left CCA 97 cm/sec Prox ICA 92 cm/sec Mid ICA 93 cm/sec Dist ICA 67 cm/sec ECA 112 cm/sec ICA/CCA 1.0 Plaque burden: Small plaques are present involving both internal carotid arteries. Antegrade flow is seen within the vertebral arteries bilaterally. IMPRESSION: Plaques are present within both internal carotid arteries without evidence of flow acceleration to suggest a hemodynamically significant stenosis; less than 50% stenosis bilaterally. RPTAT: AADD .Rito Pcaheco MD, MD Date Time Electronically viewed and signed by .Rito Pacheco MD, MD on 08/25/2016 10:35 .B/ CC: CATRINA MARTEL PROCEDURE: Renal US. CLINICAL INDICATION: Renal dysfunction. TECHNIQUE: Multiple sonographic images of the kidneys and urinary bladder were obtained. The images were reviewed on a PACS workstation. COMPARISON: No prior studies are available for comparison. FINDINGS: The right kidney measures 10.7 x 4.5 cm. The left kidney measures 11.0 x 5.2 cm. There is no renal mass. There is no hydronephrosis. There is no renal calculus. Renal parenchymal thickness is normal bilaterally. Echogenicity is normal bilaterally. The perirenal regions are normal with no fluid collection or mass. The urinary bladder is unremarkable. IMPRESSION: 1. Unremarkable renal ultrasound. RPTAT: QQ .Alan Monroe MD, Date Time Electronically viewed and signed by .Alan Monroe MD, MD on 08/25/2016 11:19 .R/ CC: CATRINA MARTEL BOLATITO M. Aug 25, 2016 12:14
[2016-08-25 12:25] LABS: CREATINE KINASE 103 IU/L (23-200)
[2016-08-25] MEDS ORDERED: BARIUM SULF 2% 450 ML BTL (BERRY SMOOTHIE) PO ONE (12:30)
[2016-08-25 13:24] LABS: CK-MB 1.42 ng/ml (0.0-2.4); TROPONIN-I < 0.012 ng/ml (0.00-0.12)
--- NOTE | 2016-08-25 15:31 | RADRPT ---
Echocardiogram Report Patient Name: ISHAN MCNAIR Gender: Male Date: 1940 Study Date: 25-Aug-2016 [employer] Attorney: Jojo Aguilar [facility] Location: 626 Ref. Physician: CATRINA MARTEL Quality: Good Procedures: Transthoracic echocardiogram with complete 2D, M-Mode, and doppler examination. Indications: Syncope. 2D/M Mode Doppler Measurement Value Normal Ranges Measurement Value Normal Ranges LVIDd 2D 4.2 3.5 - 5.6 cm PINO Vmax 2.0 cm2 LVIDs 2D 2.4 2.1 - 4.1 cm PINO VTI 2.1 cm2 FS 2D 42.5 % AV Mean Nguyễn 1.5 m/sec LVPWd 2D 1.0 0.6 - 1.1 cm AV Mean PG 11.0 mmHg IVSd 2D 1.1 0.6 - 1.1 cm AV Peak Nguyễn 2.2 m/sec IVS/LVPW 2D 1.1 AV Peak PG 19.0 mmHg AoR Diam 2D 3.2 2.0 - 3.7 cm AV VTI 46.8 cm LA/Ao 2D 1 0 - 1 AI Peak PG 45.0 mmHg EDV 2D 73.6 cm3 AI Peak Nguyễn 3.3 m/sec ESV 2D 14.0 cm3 AI PHT 682.0 msec LA Dimen 2D 3.4 2.3 - 4.0 cm LVOT Mean Nguyễn 1.1 m/sec LVOT Diam 1.9 cm LVOT Mean PG 5.0 mmHg LVOT Area 2.8 cm2 LVOT Peak Nguyễn 1.6 m/sec LVOT Peak PG 10.0 mmHg LVOT VTI 34.2 cm MV E Peak Nguyễn 0.6 m/sec MV A Peak Nguyễn 0.8 m/sec MV E/A 0.7 MV Decel Time 222 msec MV E/A 0.7 TR Peak Nguyễn 2.2 m/sec TR Peak PG 19.0 mmHg RVSP 22.0 mmHg Findings Left Ventricle: Normal left ventricular systolic function. Normal left ventricular cavity size. Mild concentric left ventricular hypertrophy. Ejection fraction is visually estimated at 65 %. Tissue Doppler/Mitral Doppler indices are consistent with impaired relaxation (Stage I diastolic dysfunction). Right Ventricle: Normal right ventricular size. Normal right ventricular systolic function. Left Atrium: There is mild enlargement of left atrium. Right Atrium: The right atrium is normal in size. Mitral Valve: Normal appearance of the mitral valve. Mild mitral valve regurgitation. Aortic Valve: Aortic sclerosis without stenosis. Mild to moderate aortic valve regurgitation. Tricuspid Valve: Normal appearance of the tricuspid valve. Estimated peak PA systolic pressure 22 mmHg. There is trace to mild tricuspid regurgitation. Pulmonic Valve: Pulmonic valve not well visualized. There is trace pulmonic regurgitation. Pericardium: Normal pericardium with no significant pericardial effusion. Aorta: Normal aortic root. IVC: Normal size and normal respiratory collapse consistent with normal right atrial pressure. Conclusions Normal left ventricular systolic function. Normal left ventricular cavity size. Mild concentric left ventricular hypertrophy. Ejection fraction is visually estimated at 65 %. Tissue Doppler/Mitral Doppler indices are consistent with impaired relaxation (Stage I diastolic dysfunction). Aortic sclerosis without stenosis. Mild to moderate aortic valve regurgitation. Estimated peak PA systolic pressure 22 mmHg based on RA pressure of 3 mmHg. Electronically Signed By: Berto Gonzalez 25-Aug-2016 15:30:18 -0700 Patient Name: ISHAN MCNAIR Study Date: 25-Aug-2016 [id number]
[2016-08-25] MEDS: CEFTRIAXONE 1 GM/50 ML (PMX) 50 ML IVPB SCH (16:00)
[2016-08-25] MEDS ORDERED: LIDOCAINE 1% (MDV) 20 ML INJ ONE (16:13)
[2016-08-25] MEDS ORDERED: LIDOCAINE 1% (MPF) 5 ML VIAL ONE (16:55)
[2016-08-25 17:24] LABS: FOLATE 14.6 ng/ml (2.8-20.0)
--- NOTE | 2016-08-25 17:59 | RADRPT ---
PROCEDURE: US guided right knee joint aspiration. CLINICAL INDICATION: Right knee joint effusion. TECHNIQUE: Prior to the procedure, informed consent was obtained. The risks, benefits, and alternatives were e xplained to the patient or the patient's family, including but not limited to bleeding, infection, p ain, visceral or vascular damage. The patient or the patient's family understood the risks and the alternatives and wished to proceed with the study. Informed written consent was obtained. A procedural pause was performed. The patient's name, date of , and procedure to be performed were verified. Ultrasound of the right knee was performed in the axial and sagittal planes. A right knee joint effu rhea is noted. Utilizing ultrasound guidance, optimal location for entry to the knee joint was ascer tained. The overlying skin was prepped and draped in the usual sterile fashion. Approximately 10 m l of 1% Xylocaine was injected locally for pain control. Using ultrasound guidance, a 21-gauge need le was advanced into the right knee suprapatellar bursa without difficulty. Fluid was aspirated. COMPARISON: None. FINDINGS: Initial ultrasound demonstrates fluid in the right suprapatellar bursa. Approximately 28 liters of serous fluid was aspirated and sent to the laboratory. Post procedure images demonstrate no remainin g fluid. IMPRESSION: 1. Satisfactory ultrasound-guided right knee joint aspiration. RPTAT: QQ .Alan Monroe MD, Date Time Electronically viewed and signed by .Alan Monroe MD, on 08/25/2016 17:59 .R/
[2016-08-25 18:04] LABS: LYMPHOCYTES,SYNOVIAL FLUID 5; NEUTROPHILS,SYNOVIAL FLUID 88 % (0-25)
[2016-08-25 18:05] LABS: SYN FLD CLARITY Cloudy; SYN FLD COLOR Yellow; SYN FLD SOURCE Right Knee; SYN FLD VOLUME 26.5 mL (0-3.5)
[2016-08-25 18:06] LABS: SYN FLD WBC 16587 /cmm (0-150)
--- NOTE | 2016-08-25 20:13 | RADRPT ---
PROCEDURE: CT Abdomen and Pelvis without contrast. CLINICAL INDICATION: Abdominal and pelvic pain. Fecal incontinence. TECHNIQUE: CT scan of the abdomen and pelvis without contrast was performed. Coronal and sagittal reformatted images were obtained from the axial source images. Images were reviewed on a [employer] PACS workstation. Total exam DLP is 359.41 mGy-cm. CTDIvol is 6.11 mGy. One or more of the fo llowin dose reduction techniques were used: Automated exposure control, adjustment of the mA and/or kV according to patient size, use of iterative reconstruction technique. COMPARISON: None. FINDINGS: The lung bases are normal. There is no pleural effusion or pericardial effusion. There is coronary artery calcification. The liver is normal in size and attenuation. There is no focal hepatic lesion. The gallbladder and bile ducts are normal. The spleen is normal in size. There is no focal splenic lesion. Both adrenals are normal with no enlargement or mass. The pancreas is unremarkable with no mass or evidence of pancreatitis. There is no renal mass or hydronephrosis. There is no renal calculus or ureteral calculus. The abdominal aorta is not dilated. There is calcification in the aorta consistent with atherosclero sis. There is no retroperitoneal lymphadenopathy or mass. There is no pelvic lymphadenopathy or mass. The bladder and distal ureters are normal. The periappendiceal region is unremarkable with no evidence of appendicitis. The appendix is well se en and appears normal. The bowel and mesentery are normal. There is no free fluid or free gas. There are degenerative changes of the spine. The osseous structures are otherwise unremarkable with no fracture or lytic lesion. IMPRESSION: 1. Coronary artery calcification. 2. Atherosclerosis. 3. Normal appendix. 4. Degenerative changes of the spine. 5. Otherwise unremarkable CT scan of the abdomen and pelvis. RPTAT: QQ .Alan Monroe MD, MD Date Time Electronically viewed and signed by .Alan Monroe MD, on 08/25/2016 20:12 .R/
[2016-08-25] MEDS: FLUCONAZOLE 200 MG/NS (PMX) 100 ML IVPB SCH (21:12)
[2016-08-26] MEDS ORDERED: hydrALAzine 20 MG INJ IV PRN
[2016-08-26 01:30] VITALS: BP 152/72; PULSE 88; RESP 18
[2016-08-26 02:35] LABS: ANION GAP 17 (8-16); SODIUM 136 mmol/L (135-144)
[2016-08-26] MEDS: PANTOPRAZOLE (EC) 40 MG TAB PO SCH (05:10)
[2016-08-26 08:01] VITALS: BP 172/80; RESP 18
[2016-08-26] MEDS: ASPIRIN (EC) 81 MG TAB PO SCH (08:37)
[2016-08-26] MEDS: LOSARTAN 50 MG TAB PO SCH (08:37)
[2016-08-26 08:41] LABS: ADD SCAN DIFF NO
[2016-08-26 08:53] LABS: BASOPHIL # 0.1 10^3/ul (0.0-0.1); BASOPHILS % 1.2 % (0.0-2.0); EOSINOPHILS # 1.1 10^3/ul (0.0-0.5); EOSINOPHILS % 11.9 % (0.0-7.0); HEMATOCRIT 34.1 % (42.0-52.0); HEMOGLOBIN 11.8 g/dl (14.0-18.0); LYMPHOCYTES # 1.9 10^3/ul (0.8-2.9); LYMPHOCYTES % 20.5 % (15.0-51.0); MEAN CORPUSCULAR HEMOGLOBIN 33.4 pg (29.0-33.0); MEAN CORPUSCULAR HGB CONC 34.6 g/dl (32.0-37.0); MEAN CORPUSCULAR VOLUME 96.6 fl (82.0-101.0); MONOCYTE # 0.9 10^3/ul (0.3-0.9); MONOCYTES % 9.7 % (0.0-11.0); NEUTROPHIL # 5.3 10^3/ul (1.6-7.5); NEUTROPHILS % 56.3 % (39.0-77.0); PLATELET COUNT 308 10^3/UL (140-415); RED BLOOD COUNT 3.53 10^6/ul (4.70-6.10); RED CELL DISTRIBUTION WIDTH 12.2 % (11.5-14.5); WHITE BLOOD COUNT 9.4 10^3/ul (4.8-10.8)
[2016-08-26 09:07] LABS: CALCIUM 8.8 mg/dl (8.4-10.2); CREATININE 0.89 mg/dl (0.61-1.24)
[2016-08-26] MEDS: ENOXAPARIN 40 MG/0.4 ML SYG SC SCH (09:09)
[2016-08-26] MEDS ORDERED: LOSARTAN 50 MG TAB PO ONE (12:00)
[2016-08-26] MEDS: METOPROLOL 25 MG TAB PO SCH ×2 (12:49→20:53)
[2016-08-26 12:50] VITALS: BP 165/93; RESP 18
[2016-08-26] MEDS ORDERED: COLCHICINE 0.6 MG TAB PO ONE (13:00)
[2016-08-26 15:28] VITALS: BP 167/73; RESP 18
[2016-08-26] MEDS: CEFTRIAXONE 1 GM/50 ML (PMX) 50 ML IVPB SCH (16:25)
--- NOTE | 2016-08-26 17:47 | PN ---
Date/Time of Note Date/Time of Note DATE: 08/26/16 TIME: 17:35 Assessment/Plan VTE Prophylaxis VTE Prophylaxis Intervention: LMWH Lines/Catheters IV Catheter Type (from Nrs): Saline Lock Assessment/Plan Assessment/Plan 75-year-old male brought in by family because of weakness and recurrent falls with the followin. Generalized weakness with recurrent falls: multifactorial re: UTI / Gout 2. Bilateral osteoarthritis of the knee with Acute Gouty episode R knee 3. Previous CVA , no acute insult 4. Urinary tract infection (bacteria / yeast) 5. Symptomatic hyponatremia 2/2 #4: resolved 6. Megaloblastic anemia : stable 7. Hypertension with suboptimal 8. Mild to Moderate AVR PLAN: * Continue abx in house for now * Begin Colchicine and send synovial fluid for culture to r/o infection * PT eval pending * Continue to hold diuretics * Supportive care / fall precautions / pain control Subjective 24 Hr Interval Summary Free Text/Dictation Patient feels much better, much more coherent and conversant. When told he has a UTI, he wants to know the name of the bug. Exam/Review of Systems Vital Signs Vitals Vital Signs Date Time Temp Pulse Resp B/P Pulse Ox O2 Delivery O2 Flow Rate FiO2 08/26/16 15:28 99.2 62 18 167/73 100 08/26/16 12:50 Room Air 08/25/16 21:00 2.0 Intake and Output 08/25/16 08/25/16 08/26/16 15:00 23:00 07:00 Intake Total 540 ml 1390 ml 750 ml Output Total 1000 ml 1550 ml Balance 540 ml 390 ml -800 ml Exam Constitutional: alert, oriented, elderly, has not ambulated yet Head: atraumatic, normocephalic Neck: non-tender, supple Respiratory: clear to auscultation Cardiovascular: regular rate and rhythm Gastrointestinal: S/ NT / ND / +BS Extremities: no edema, good radial pulses Results Result Diagram: 08/26/16 0745 08/26/16 0745 Results 24 hrs Laboratory Tests Test 08/26/16 07:45 White Blood Count 9.4 Red Blood Count 3.53 L Hemoglobin 11.8 L Hematocrit 34.1 L Mean Corpuscular Volume 96.6 Mean Corpuscular Hemoglobin 33.4 H Mean Corpuscular Hemoglobin Concent 34.6 Red Cell Distribution Width 12.2 Platelet Count 308 Mean Platelet Volume 9.0 Neutrophils % 56.3 Lymphocytes % 20.5 Monocytes % 9.7 Eosinophils % 11.9 H Basophils % 1.2 Nucleated Red Blood Cells % 0.0 Neutrophils # 5.3 Lymphocytes # 1.9 Monocytes # 0.9 Eosinophils # 1.1 H Basophils # 0.1 Nucleated Red Blood Cells # 0.0 Sodium Level 135 Potassium Level 4.0 Chloride Level 101 Carbon Dioxide Level 24 Anion Gap 14 Blood Urea Nitrogen 12 Creatinine 0.89 Glucose Level 90 Calcium Level 8.8 Medications Medications Current Medications Aspirin 81 mg 81 mg DAILY PO Last administered on 08/26/16 08:37; Admin Dose 81 MG; Start 08/25/16 at 09:00 Ceftriaxone Sodium (Rocephin) 50 ml @ 100 mls/hr Q24H IVPB Last administered on 08/26/16 16:25; Admin Dose 100 MLS/HR; Start 08/25/16 at 16:00 Ondansetron HCl (Zofran Inj) 4 mg Q6H PRN IV NAUSEA AND/OR VOMITING; Start at 20:30 Acetaminophen/ Hydrocodone Bitart ([place] (5/325)) 1 tab Q6H PRN PO pain; Start 08/24/16 at 20:30 Pantoprazole (Protonix Tab) 40 mg DAILY@06 PO Last administered on 08/26/16 05 :10; Admin Dose 40 MG; Start 08/25/16 at 06:00 Enoxaparin Sodium 40 mg 40 mg DAILY SC Last administered on 08/26/16 09:09; Admin Dose 40 MG; Start 08/25/16 at 09:00 Fluconazole (Diflucan 200 Mg/ NS (Pmx)) 100 ml @ 100 mls/hr Q24H IVPB Last administered on 08/25/16 21:12; Admin Dose 100 MLS/HR; Start 08/24/16 at 21:15 Hydralazine HCl (Apresoline) 10 mg Q6H PRN IV SBP >160 Last administered on 23:46; Admin Dose 10 MG; Start 08/26/16 at 00:00 Colchicine (Colchicine) 0.6 mg BID PO ; Start 08/26/16 at 21:00 Losartan Potassium (Cozaar) 100 mg DAILY PO ; Start 08/27/16 at 09:00 Tamsulosin HCl (Flomax) 0.4 mg HS PO ; Start 08/26/16 at 21:00 Metoprolol Tartrate (Lopressor) 25 mg BID PO Last administered on 08/26/16t 12: 49; Admin Dose 25 MG; Start 08/26/16 at 12:00 Procedures Procedures PROCEDURE: Renal US. CLINICAL INDICATION: Renal dysfunction. TECHNIQUE: Multiple sonographic images of the kidneys and urinary bladder were obtained. The images were reviewed on a PACS workstation. COMPARISON: No prior studies are available for comparison. FINDINGS: The right kidney measures 10.7 x 4.5 cm. The left kidney measures 11.0 x 5.2 cm. There is no renal mass. There is no hydronephrosis. There is no renal calculus. Renal parenchymal thickness is normal bilaterally. Echogenicity is normal bilaterally. The perirenal regions are normal with no fluid collection or mass. The urinary bladder is unremarkable. IMPRESSION: 1. Unremarkable renal ultrasound. RPTAT: QQ .Alan Monroe MD, Date Time Electronically viewed and signed by .Alan Monroe MD, on 08/25/2016 11:19 .R/ CC: CATRINA MARTEL PROCEDURE: Carotid ultrasound CLINICAL INDICATION: Stroke, carotid bruits TECHNIQUE: Cunningham scale, color doppler, spectral doppler ultrasound of the bilateral carotid and vertebral arteries. This study indirectly references the measurement of the distal ICA diameter as the denominator for stenosis measurement. Validated velocity measurements with angiographic measurements, velocity criteria are extrapolated from diameter data as defined by: *Cartoid artery stenosis: cunningham-scale and Doppler US diagnosis. Society of Radiologists in Ultrasound Consensus Conference. Radiology 2003; 229: 340-346. SRU Consensus Conference Criteria for the Diagnosis of Carotid Artery Stenosis* Degree of Stenosis, % ICA PSV, cm/sec Plaque Estimate, % ICA/CCA PSV Ratio Normal <125 None <2.0 <50 <125 <50 <2.0 50 69 125-230 >50 2.0-4.0 >70 but less than near occlusion >230 >50 <4.0 Near occlusion High, low, or undetectable Visible Variable Total occlusion Undetectable Visible, no detectable lumen Not applicable COMPARISON: No prior studies are available for comparison. FINDINGS: Location Right CCA 113 cm/sec Prox ICA 69 cm/sec Mid ICA 48 cm/sec Dist ICA 70 cm/sec ECA 148 cm/sec ICA/CCA 0.9 Left CCA 97 cm/sec Prox ICA 92 cm/sec Mid ICA 93 cm/sec Dist ICA 67 cm/sec ECA 112 cm/sec ICA/CCA 1.0 Plaque burden: Small plaques are present involving both internal carotid arteries. Antegrade flow is seen within the vertebral arteries bilaterally. IMPRESSION: Plaques are present within both internal carotid arteries without evidence of flow acceleration to suggest a hemodynamically significant stenosis; less than 50% stenosis bilaterally. RPTAT: AADD .Rito Pacheco MD, Date Time Electronically viewed and signed by .Rito Pacheco MD, MD on 08/25/2016 10:35 .B/ PROCEDURE: CT Abdomen and Pelvis without contrast. CLINICAL INDICATION: Abdominal and pelvic pain. Fecal incontinence. TECHNIQUE: CT scan of the abdomen and pelvis without contrast was performed. Coronal and sagittal reformatted images were obtained from the axial source images. Images were reviewed on a high-resolution PACS workstation. Total exam DLP is 359.41 mGy-cm. CTDIvol is 6.11 mGy. One or more of the following dose reduction techniques were used: Automated exposure control, adjustment of the mA and/or kV according to patient size, use of iterative reconstruction technique. COMPARISON: None. FINDINGS: The lung bases are normal. There is no pleural effusion or pericardial effusion. There is coronary artery calcification. The liver is normal in size and attenuation. There is no focal hepatic lesion. The gallbladder and bile ducts are normal. The spleen is normal in size. There is no focal splenic lesion. Both adrenals are normal with no enlargement or mass. The pancreas is unremarkable with no mass or evidence of pancreatitis. There is no renal mass or hydronephrosis. There is no renal calculus or ureteral calculus. The abdominal aorta is not dilated. There is calcification in the aorta consistent with atherosclerosis. There is no retroperitoneal lymphadenopathy or mass. There is no pelvic lymphadenopathy or mass. The bladder and distal ureters are normal. The periappendiceal region is unremarkable with no evidence of appendicitis. The appendix is well seen and appears normal. The bowel and mesentery are normal. There is no free fluid or free gas. There are degenerative changes of the spine. The osseous structures are otherwise unremarkable with no fracture or lytic lesion. IMPRESSION: 1. Coronary artery calcification. 2. Atherosclerosis. 3. Normal appendix. 4. Degenerative changes of the spine. 5. Otherwise unremarkable CT scan of the abdomen and pelvis. RPTAT: QQ .Alan Monroe MD, MD Date Time Electronically viewed and signed by .Alan Monroe MD, on 08/25/2016 20:12 .R/ CC: CATRINA MARTEL PROCEDURE: US guided right knee joint aspiration. CLINICAL INDICATION: Right knee joint effusion. TECHNIQUE: Prior to the procedure, informed consent was obtained. The risks, benefits, and alternatives were explained to the patient or the patient's family, including but not limited to bleeding, infection, pain, visceral or vascular damage. The patient or the patient's family understood the risks and the alternatives and wished to proceed with the study. Informed written consent was obtained. A procedural pause was performed. The patient's name, date of , and procedure to be performed were verified. Ultrasound of the right knee was performed in the axial and sagittal planes. A right knee joint effusion is noted. Utilizing ultrasound guidance, optimal location for entry to the knee joint was ascertained. The overlying skin was prepped and draped in the usual sterile fashion. Approximately 10 ml of 1% Xylocaine was injected locally for pain control. Using ultrasound guidance, a 21-gauge needle was advanced into the right knee suprapatellar bursa without difficulty. Fluid was aspirated. COMPARISON: None. FINDINGS: Initial ultrasound demonstrates fluid in the right suprapatellar bursa. Approximately 28 liters of serous fluid was aspirated and sent to the laboratory. Post procedure images demonstrate no remaining fluid. IMPRESSION: 1. Satisfactory ultrasound-guided right knee joint aspiration. RPTAT: QQ .Alan Monroe MD, Date Time Electronically viewed and signed by .Alan Monroe MD, on 08/25/2016 17:59 .R/ CC: CATRINA MARTEL Echocardiogram Report Patient Name: ISHAN MCNAIR Gender: Male Date: 1940 Study Date: 25-Aug-2016 Job Coach/Job Developer: Jojo Aguilar RDCS Location: 626 Ref. Physician: CATRINA MARTEL Quality: Good Procedures: Transthoracic echocardiogram with complete 2D, M-Mode, and doppler examination. Indications: Syncope. 2D/M Mode Doppler Measurement Value Normal Ranges Measurement Value Normal Ranges LVIDd 2D 4.2 3.5 - 5.6 cm PINO Vmax 2.0 cm2 LVIDs 2D 2.4 2.1 - 4.1 cm PINO VTI 2.1 cm2 FS 2D 42.5 % AV Mean Nguyễn 1.5 m/sec LVPWd 2D 1.0 0.6 - 1.1 cm AV Mean PG 11.0 mmHg IVSd 2D 1.1 0.6 - 1.1 cm AV Peak Nguyễn 2.2 m/sec IVS/LVPW 2D 1.1 AV Peak PG 19.0 mmHg AoR Diam 2D 3.2 2.0 - 3.7 cm AV VTI 46.8 cm LA/Ao 2D 1 0 - 1 AI Peak PG 45.0 mmHg EDV 2D 73.6 cm3 AI Peak Nguyễn 3.3 m/sec ESV 2D 14.0 cm3 AI PHT 682.0 msec LA Dimen 2D 3.4 2.3 - 4.0 cm LVOT Mean Nguyễn 1.1 m/sec LVOT Diam 1.9 cm LVOT Mean PG 5.0 mmHg LVOT Area 2.8 cm2 LVOT Peak Nguyễn 1.6 m/sec LVOT Peak PG 10.0 mmHg LVOT VTI 34.2 cm MV E Peak Nguyễn 0.6 m/sec MV A Peak Nguyễn 0.8 m/sec MV E/A 0.7 MV Decel Time 222 msec MV E/A 0.7 TR Peak Nguyễn 2.2 m/sec TR Peak PG 19.0 mmHg RVSP 22.0 mmHg Findings Left Ventricle: Normal left ventricular systolic function. Normal left ventricular cavity size. Mild concentric left ventricular hypertrophy. Ejection fraction is visually estimated at 65 %. Tissue Doppler/Mitral Doppler indices are consistent with impaired relaxation (Stage I diastolic dysfunction). Right Ventricle: Normal right ventricular size. Normal right ventricular systolic function. Left Atrium: There is mild enlargement of left atrium. Right Atrium: The right atrium is normal in size. Mitral Valve: Normal appearance of the mitral valve. Mild mitral valve regurgitation. Aortic Valve: Aortic sclerosis without stenosis. Mild to moderate aortic valve regurgitation. Tricuspid Valve: Normal appearance of the tricuspid valve. Estimated peak PA systolic pressure 22 mmHg. There is trace to mild tricuspid regurgitation. Pulmonic Valve: Pulmonic valve not well visualized. There is trace pulmonic regurgitation. Pericardium: Normal pericardium with no significant pericardial effusion. Aorta: Normal aortic root. IVC: Normal size and normal respiratory collapse consistent with normal right atrial pressure. Conclusions Normal left ventricular systolic function. Normal left ventricular cavity size. Mild concentric left ventricular hypertrophy. Ejection fraction is visually estimated at 65 %. Tissue Doppler/Mitral Doppler indices are consistent with impaired relaxation (Stage I diastolic dysfunction). Aortic sclerosis without stenosis. Mild to moderate aortic valve regurgitation. Estimated peak PA systolic pressure 22 mmHg based on RA pressure of 3 mmHg. Electronically Signed By: Berto Gonzalez 25-Aug-2016 15:30:18 0700 Patient Name: ISHAN MCNAIR Study Date: 25-Aug-2016 [id number] CATRINA MARTEL Aug 26, 2016 17:45
[2016-08-26] MEDS ORDERED: METHYLPREDNISOLONE 40 MG INJ IV ONE (18:00)
[2016-08-26 20:30] VITALS: BP 148/66; RESP 20
[2016-08-26 20:50] VITALS: BP 179/72; PULSE 69; RESP 18
[2016-08-26] MEDS: TAMSULOSIN (SR) 0.4 MG CAP PO SCH (20:53)
[2016-08-26] MEDS: NIFEdipine (XL) 30 MG TAB PO SCH (20:54)
[2016-08-26] MEDS: COLCHICINE 0.6 MG TAB PO SCH (22:16)
[2016-08-26] MEDS: FLUCONAZOLE 200 MG/NS (PMX) 100 ML IVPB SCH (22:17)
[2016-08-27 04:05] VITALS: BP 116/58; PULSE 79; RESP 18
[2016-08-27] MEDS: PANTOPRAZOLE (EC) 40 MG TAB PO SCH (05:22)
[2016-08-27 08:14] VITALS: BP 123/59; RESP 18
--- NOTE | 2016-08-27 08:35 | RADRPT ---
PROCEDURE: MRI Brain without contrast. CLINICAL INDICATION: Possible CVA. TECHNIQUE: An MRI of the brain was performed utilizing the following sequences: Sagittal and axial T1 weighted, axial T2 weighted, axial diffusion weighted with ADC mapping, coronal GRE, and axial F LAIR. COMPARISON: Brain CT 08/24/2016. FINDINGS: No diffusion weighted abnormalities are seen to suggest the presence of acute ischemia or recent inf arct. No hypointense signal abnormalities are seen on the GRE images to suggest the presence of blo od degradation products. There is no evidence of intracranial hemorrhage, mass effect, or midline s hift. No extra-axial fluid collections are seen. The ventricles and sulci are mildly to moderately e nlarged indicative of volume loss. Cavum septum pellucidum is noted, anatomical variation. There are mild foci of T2 FLAIR hyperintensity in the white matter, which are nonspecific in etiolog y but likely reflect chronic small vessel ischemic changes. Small old lacunar infarcts are noted in the bilateral centrum semiovale, left ramsey radiata, left lentiform nucleus and right cerebellar hemisphere. No abnormal intracranial vascular flow void is noted. The visualized paranasal sinuses demonstrate m ild mucosal thickening mainly in ethmoid air cells and maxillary sinuses. There is a probable mucou s retention cyst in the right maxillary sinus. Partially visualized upper cervical spine demonstrate discogenic disease at C3-C4 with prominent dis k bulge and probable significant spinal canal stenosis and flattening of the spinal cord which is foote boptimally evaluated as only included on T1 sagittal images. There is thinning of bilateral lens indicative of prior lens replacement. IMPRESSION: 1. No acute intracranial hemorrhage, infarction or mass. 2. Mild chronic small vessel ischemic changes. 3. Small old lacunar infarcts in the bilateral centrum semiovale, left ramsey radiata, left lentifo rm nucleus and right cerebellar hemisphere. 4. Mild to moderate generalized cerebral volume loss. 5. Partially visualized upper cervical spine demonstrate discogenic disease at C3-C4 with prominent disk bulge and probable significant spinal canal stenosis and flattening of the spinal cord. Recomm end dedicated cervical spine MRI for better evaluation. RPTAT: HFN .Giselle Lorenzo MD, Date Time Electronically viewed and signed by .Giselle Lorenzo MD, on 08/27/2016 08:35 .N/
[2016-08-27] MEDS: ASPIRIN (EC) 81 MG TAB PO SCH (08:38)
[2016-08-27] MEDS: COLCHICINE 0.6 MG TAB PO SCH ×2 (08:38→21:17)
[2016-08-27] MEDS: METOPROLOL 25 MG TAB PO SCH ×2 (08:39→21:24)
[2016-08-27] MEDS: LOSARTAN 50 MG TAB PO SCH (08:39)
[2016-08-27] MEDS: NIFEdipine (XL) 30 MG TAB PO SCH ×2 (08:40→21:18)
[2016-08-27] MEDS: ENOXAPARIN 40 MG/0.4 ML SYG SC SCH (08:45)
--- NOTE | 2016-08-27 08:57 | PN ---
Date/Time of Note Date/Time of Note DATE: 08/27/16 TIME: 08:56 Assessment/Plan VTE Prophylaxis VTE Prophylaxis Intervention: LMWH Lines/Catheters IV Catheter Type (from Nrs): Saline Lock Assessment/Plan Assessment/Plan Assessment/Plan 75-year-old male brought in by family because of weakness and recurrent falls with the followin. Generalized weakness with recurrent falls: multifactorial re: UTI / Gout 2. Bilateral osteoarthritis of the knee with Acute Gouty episode R knee 3. Previous CVA , no acute insult 4. Enterococcus / yeast Urinary tract infection 5. Symptomatic hyponatremia 2/2 #4: resolved 6. Megaloblastic anemia : stable 7. Hypertension now well controlled 8. Mild to Moderate AVR PLAN: * Continue abx in house for now * Continue colchicine * Dedicated MRI c- spine ordered * Supportive care / fall precautions / pain control Subjective 24 Hr Interval Summary Free Text/Dictation patient continues to feel well, no overnight issues Exam/Review of Systems Vital Signs Vitals Vital Signs Date Time Temp Pulse Resp B/P Pulse Ox O2 Delivery O2 Flow Rate FiO2 08/27/16 08:14 98.1 86 18 123/59 98 08/27/16 04:05 Room Air 08/25/16 21:00 2.0 Intake and Output 08/26/16 08/26/16 08/27/16 15:00 23:00 07:00 Intake Total 1370 ml 1120 ml Output Total 1210 ml 1700 ml Balance 160 ml -580 ml Exam Constitutional: alert, oriented, elderly, has not ambulated yet Head: atraumatic, normocephalic Neck: non-tender, supple Respiratory: clear to auscultation Cardiovascular: regular rate and rhythm Gastrointestinal: S/ NT / ND / +BS Extremities: no edema, good radial pulses Results Result Diagram: 08/26/16 0745 08/26/16 0745 Medications Medications Current Medications Aspirin 81 mg 81 mg DAILY PO Last administered on 08/27/16 08:38; Admin Dose 81 MG; Start 08/25/16 at 09:00 Ceftriaxone Sodium (Rocephin) 50 ml @ 100 mls/hr Q24H IVPB Last administered on 08/26/16 16:25; Admin Dose 100 MLS/HR; Start 08/25/16 at 16:00 Ondansetron HCl (Zofran Inj) 4 mg Q6H PRN IV NAUSEA AND/OR VOMITING; Start at 20:30 Acetaminophen/ Hydrocodone Bitart ([place] (5/325)) 1 tab Q6H PRN PO pain; Start 08/24/16 at 20:30 Pantoprazole (Protonix Tab) 40 mg DAILY@06 PO Last administered on 08/27/16 05 :22; Admin Dose 40 MG; Start 08/25/16 at 06:00 Enoxaparin Sodium 40 mg 40 mg DAILY SC Last administered on 08/27/16 08:45; Admin Dose 40 MG; Start 08/25/16 at 09:00 Fluconazole (Diflucan 200 Mg/ NS (Pmx)) 100 ml @ 100 mls/hr Q24H IVPB Last administered on 08/26/16 22:17; Admin Dose 100 MLS/HR; Start 08/24/16 at 21:15 Hydralazine HCl (Apresoline) 10 mg Q6H PRN IV SBP >160 Last administered on 23:46; Admin Dose 10 MG; Start 08/26/16 at 00:00 Colchicine (Colchicine) 0.6 mg BID PO Last administered on 08/27/16 08:38; Admin Dose 0.6 MG; Start 08/26/16 at 21:00 Losartan Potassium (Cozaar) 100 mg DAILY PO Last administered on 08/27/16 08: 39; Admin Dose 100 MG; Start 08/27/16 at 09:00 Tamsulosin HCl (Flomax) 0.4 mg HS PO Last administered on 08/26/16 20:53; Admin Dose 0.4 MG; Start 08/26/16 at 21:00 Metoprolol Tartrate (Lopressor) 25 mg BID PO Last administered on 08/27/16 08: 39; Admin Dose 25 MG; Start 08/26/16 at 12:00 Nifedipine (Procardia Xl) 30 mg BID PO Last administered on 08/27/16 08:40; Admin Dose 30 MG; Start 08/26/16 at 21:00 Procedures Procedures PROCEDURE: MRI Brain without contrast. CLINICAL INDICATION: Possible CVA. TECHNIQUE: An MRI of the brain was performed utilizing the following sequences : Sagittal and axial T1 weighted, axial T2 weighted, axial diffusion weighted with ADC mapping, coronal GRE, and axial FLAIR. COMPARISON: Brain CT 08/24/2016. FINDINGS: No diffusion weighted abnormalities are seen to suggest the presence of acute ischemia or recent infarct. No hypointense signal abnormalities are seen on the GRE images to suggest the presence of blood degradation products. There is no evidence of intracranial hemorrhage, mass effect, or midline shift. No extra- axial fluid collections are seen. The ventricles and sulci are mildly to moderately enlarged indicative of volume loss. Cavum septum pellucidum is noted , anatomical variation. There are mild foci of T2 FLAIR hyperintensity in the white matter, which are nonspecific in etiology but likely reflect chronic small vessel ischemic changes. Small old lacunar infarcts are noted in the bilateral centrum semiovale, left ramsey radiata, left lentiform nucleus and right cerebellar hemisphere. No abnormal intracranial vascular flow void is noted. The visualized paranasal sinuses demonstrate mild mucosal thickening mainly in ethmoid air cells and maxillary sinuses. There is a probable mucous retention cyst in the right maxillary sinus. Partially visualized upper cervical spine demonstrate discogenic disease at C3- C4 with prominent disk bulge and probable significant spinal canal stenosis and flattening of the spinal cord which is suboptimally evaluated as only included on T1 sagittal images. There is thinning of bilateral lens indicative of prior lens replacement. IMPRESSION: 1. No acute intracranial hemorrhage, infarction or mass. 2. Mild chronic small vessel ischemic changes. 3. Small old lacunar infarcts in the bilateral centrum semiovale, left ramsey radiata, left lentiform nucleus and right cerebellar hemisphere. 4. Mild to moderate generalized cerebral volume loss. 5. Partially visualized upper cervical spine demonstrate discogenic disease at C3-C4 with prominent disk bulge and probable significant spinal canal stenosis and flattening of the spinal cord. Recommend dedicated cervical spine MRI for better evaluation. RPTAT: HFN .Giselle Lorenzo MD, MD Date Time Electronically viewed and signed by .Giselle Lorenzo MD, MD on 08/27/2016 08: 35 .N/ CC: CATRINA MARTEL CATRINA MARTEL 16, 2017 08:57
[2016-08-27 10:36] LABS: ADD SCAN DIFF NO
[2016-08-27 10:38] LABS: HEMATOCRIT 36.6 % (42.0-52.0); HEMOGLOBIN 12.6 g/dl (14.0-18.0); LYMPHOCYTES # 0.7 10^3/ul (0.8-2.9); LYMPHOCYTES % 8.7 % (15.0-51.0); MEAN CORPUSCULAR HEMOGLOBIN 32.4 pg (29.0-33.0); MEAN CORPUSCULAR HGB CONC 34.4 g/dl (32.0-37.0); MEAN CORPUSCULAR VOLUME 94.1 fl (82.0-101.0); MEAN PLATELET VOLUME 8.5 fl (7.4-10.4); MONOCYTE # 0.3 10^3/ul (0.3-0.9); MONOCYTES % 2.9 % (0.0-11.0); NEUTROPHIL # 7.5 10^3/ul (1.6-7.5); PLATELET COUNT 321 10^3/UL (140-415); RED BLOOD COUNT 3.89 10^6/ul (4.70-6.10); RED CELL DISTRIBUTION WIDTH 11.9 % (11.5-14.5); WHITE BLOOD COUNT 8.5 10^3/ul (4.8-10.8)
[2016-08-27 11:00] LABS: CALCIUM 9.3 mg/dl (8.4-10.2); CREATININE 0.82 mg/dl (0.61-1.24); POTASSIUM 4.5 mmol/L (3.5-5.1)
--- NOTE | 2016-08-27 12:38 | RADRPT ---
PROCEDURE: MR Cervical Spine with and without contrast. CLINICAL INDICATION: Discogenic disk disease at C3-4 with prominent disk bulge and probable spina l canal stenosis with flattening the spinal cord at C3-4. TECHNIQUE: An MRI of the cervical spine was performed on a high-definition MRI scanner utilizing th e following sequences: Sagittal FSE and axial T1 weighted, sagittal and axial T2 weighted FSE, sagit seble FST2 weighted with fat saturation, and axial T2 FGRE. 10 cc of intravenous Magnevist was adminis tered without complication. COMPARISON: MRI brain 08/26/2016. FINDINGS: The medulla and visible portions of the cerebellum are unremarkable without evidence of tonsillar he rniation. C1 and C2 are intact. C2-3: The intervertebral disk space neural canal and nerve root foramina are unremarkable. There a re degenerative changes in the right articular facets. The left articular facets are normal. There are ventral osteophytes off of C3. C3-4: There is a left paracentral disk herniation with associated annular tear resulting in a centr al canal stenosis at C3-4. There is mild cord edema at C3-4. There are degenerative changes in the facets at C3-4. Bilateral nerve root canal stenoses are suspected. Following administration of no abnormal enhancement of the spinal cord or cervical vertebra is noted. There is no abnormal enhance ment involving any of the intervertebral disk spaces. C4-5: There is generalized disk space narrowing at C4-5 with ventral and dorsal spondylosis. There is a annular tear at C4-5. There are linear areas of increased signal intensity in the spinal cord at the level of C4 and C5 which may be the result of myelomalacia or less likely cord edema. Overall volume of the spinal cord is reduced in these areas. There are ventral osteophytes off of C5. Ther e are degenerative changes in the facets at C4-5. There are bilateral bony nerve root canal stenosi s. C5-6: There is disk space narrowing and ventral spondylosis. There is a 4.1 mm AP dorsal central di sk osteophyte complex. The neural canal is normal in size. There are degenerative changes in the a rticular facets bilaterally. There are bilateral bony nerve root canal stenosis. C6-7: There is a 3.4 mm AP left paracentral dorsal disk osteophyte complex. There are degenerative changes in the articular facets. There are bilateral bony nerve root canal stenosis greater on the left side than right. The neural canal at C6 is normal in size. C6-7: There is disk space narrowing with mild ventral and dorsal spondylosis. There are mild degen erative changes in the facets. Bilateral bony nerve root canal stenoses are suspected. The neural canal and C7 is normal in size. C7-T1: There is disk space narrowing with ventral spondylosis and mild dorsal spondylosis. There i s a bony right nerve root canal stenosis and moderately severe narrowing of the left nerve root selena l. The neural canal at T1 is normal in size. The supraclavicular areas are unremarkable. No enlarged cervical lymph nodes are identified. The v ocal cords are normal. The parapharyngeal vascular spaces are normal. The visible portions of the parotid glands are normal. The submandibular glands are normal where visualized. IMPRESSION: 1. 3.8 mm AP C3-4 left paracentral disk herniation with associated extruded fragments and associate d annular tear resulting in a central canal stenosis and cord edema at C3-4. 2. 3 mm AP dorsal disk osteophyte complex with disk space narrowing and ventral spondylosis at C4-5 an associated small annular tear at C4-5. 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 Bilateral deg enerative facet arthropathy with bilateral nerve root canal stenosis at C4-5. 3. Generalized disk space narrowing with ventral and dorsal spondylosis at C5-6 associated with bila teral bony nerve root canal stenosis and bilateral degenerative facet arthropathy. 4. 3.4 mm AP dorsal left paracentral disk osteophyte complex with bilateral degenerative facet arth ropathy at C6-7 and associated bony nerve root canal stenosis. 5. Disk space narrowing with mild ventral and dorsal spondylosis at C7-T1 with bony right C7-T1 nerv e root canal stenosis and moderate narrowing of the left nerve root canal. 6. No evidence of a diskitis, osteomyelitis or enhancement within the cervical cord. RPTAT:AAJJ Physician Arya Date Time Electronically viewed and signed by Physician Arya on 08/27/2016 12:23 AGUSTIN/
[2016-08-27 14:29] VITALS: BP 103/58; RESP 18
[2016-08-27] MEDS: LEVOFLOXACIN 500MG/D5W (PMX) 100 ML IVPB SCH (16:00)
[2016-08-27 20:44] VITALS: BP 116/75; RESP 20
[2016-08-27] MEDS: TAMSULOSIN (SR) 0.4 MG CAP PO SCH (21:18)
[2016-08-27] MEDS: HYDROCODONE/APAP (5/325) TAB PO PRN (21:19)
[2016-08-27] MEDS: FLUCONAZOLE 200 MG/NS (PMX) 100 ML IVPB SCH (21:23)
[2016-08-28 03:15] VITALS: BP 102/54; RESP 20
[2016-08-28] MEDS: PANTOPRAZOLE (EC) 40 MG TAB PO SCH (06:41)
[2016-08-28 07:43] VITALS: BP 106/56; RESP 18
[2016-08-28 08:54] VITALS: BP 126/61; PULSE 71
[2016-08-28] MEDS: COLCHICINE 0.6 MG TAB PO SCH ×2 (08:54→20:21)
[2016-08-28] MEDS: NIFEdipine (XL) 30 MG TAB PO SCH ×2 (08:55→20:20)
[2016-08-28] MEDS: METOPROLOL 25 MG TAB PO SCH ×2 (08:55→20:21)
[2016-08-28] MEDS: ASPIRIN (EC) 81 MG TAB PO SCH (08:55)
[2016-08-28] MEDS: LOSARTAN 50 MG TAB PO SCH (08:55)
[2016-08-28] MEDS: ENOXAPARIN 40 MG/0.4 ML SYG SC SCH (08:56)
--- NOTE | 2016-08-28 12:42 | PN ---
Date/Time of Note Date/Time of Note DATE: 08/28/16 TIME: 12:35 Assessment/Plan VTE Prophylaxis VTE Prophylaxis Intervention: LMWH Lines/Catheters IV Catheter Type (from Nrsg): Saline Lock Assessment/Plan Chief Complaint/Hosp Course 1. Generalized weakness with recurrent falls: multifactorial re: UTI / Gout Continue abx in house for now, PT rec at this time is stiff versus home with home health and front wheel walker MRI C-spine does show cervical stenosis, but patient has no pain in the neck, upper back or upper extremity weakness but will consider neurosurgical consultation 2. Bilateral osteoarthritis of the knee with Acute Gouty episode R knee Continue colchicine 3. Previous CVA , no acute insult 4. Cervical cord stenosis 5. Symptomatic hyponatremia 2/ #4: resolved 6. Megaloblastic anemia : stable 7. Hypertension now well controlled 8. Mild to Moderate AVR Prophylaxis: Lovenox Problems: Subjective 24 Hr Interval Summary Constitutional: no complaints Exam/Review of Systems Vital Signs Vitals Vital Signs Date Time Temp Pulse Resp B/P Pulse Ox O2 Delivery O2 Flow Rate FiO2 08/28/16 08:54 71 126/61 08/28/16 07:43 98.4 18 97 08/27/16 04:05 Room Air 08/25/16 21:00 2.0 Intake and Output 08/27/16 08/27/16 08/28/16 15:00 23:00 07:00 Intake Total 1480 ml 600 ml Output Total 1350 ml Balance 1480 ml -750 ml Exam Constitutional: alert Respiratory: clear to auscultation Cardiovascular: regular rate and rhythm Gastrointestinal: soft, No distended Musculoskeletal: nl extremities to inspection Results Result Diagram: 08/27/16 1022 08/27/16 1022 Medications Medications Current Medications Aspirin (Halfprin) 81 mg DAILY PO Last administered on 08/28/16 08:55; Admin Dose 81 MG; Start 08/25/16 at 09:00 Ondansetron HCl (Zofran Inj) 4 mg Q6H PRN IV NAUSEA AND/OR VOMITING; Start at 20:30 Acetaminophen/ Hydrocodone Bitart (Admire (5/325)) 1 tab Q6H PRN PO pain Last administered on 08/27/16 21:19; Admin Dose 1 TAB; Start 08/24/16 at 20:30 Pantoprazole (Protonix Tab) 40 mg DAILY@06 PO Last administered on 08/28/16 06 :41; Admin Dose 40 MG; Start 08/25/16 at 06:00 Enoxaparin Sodium 40 mg 40 mg DAILY SC Last administered on 08/28/16 08:56; Admin Dose 40 MG; Start 08/25/16 at 09:00 Fluconazole (Diflucan 200 Mg/ NS (Pmx)) 100 ml @ 100 mls/hr Q24H IVPB Last administered on 08/27/16 21:23; Admin Dose 100 MLS/HR; Start 08/24/16 at 21:15 ; Stop 09/03/16 at 21:14 Hydralazine HCl (Apresoline) 10 mg Q6H PRN IV SBP >160 Last administered on 23:46; Admin Dose 10 MG; Start 08/26/16 at 00:00 Colchicine (Colchicine) 0.6 mg BID PO Last administered on 08/28/16 08:54; Admin Dose 0.6 MG; Start 08/26/16 at 21:00 Losartan Potassium (Cozaar) 100 mg DAILY PO Last administered on 08/28/16 08: 55; Admin Dose 100 MG; Start 08/27/16 at 09:00 Tamsulosin HCl (Flomax) 0.4 mg HS PO Last administered on 08/27/16 21:18; Admin Dose 0.4 MG; Start 08/26/16 at 21:00 Metoprolol Tartrate (Lopressor) 25 mg BID PO Last administered on 08/28/16 08: 55; Admin Dose 25 MG; Start 08/26/16 at 12:00 Nifedipine 30 mg 30 mg BID PO Last administered on 08/28/16 08:55; Admin Dose 30 MG; Start 08/26/16 at 21:00 Levofloxacin/ Dextrose (Levaquin 500mg/ D5W 100 ml (Pmx)) 100 ml @ 100 mls/hr Q24H IVPB Last administered on 08/27/16 16:00; Admin Dose 100 MLS/HR; Start at 13:00; Stop 09/01/16 at 12:59 DANTE KINSEY Aug 28, 2016 12:42
[2016-08-28] MEDS: LEVOFLOXACIN 500MG/D5W (PMX) 100 ML IVPB SCH (13:00)
[2016-08-28 14:45] VITALS: BP 110/58; PULSE 62; RESP 18
[2016-08-28 20:03] VITALS: BP 134/64; RESP 20
[2016-08-28] MEDS: HYDROCODONE/APAP (5/325) TAB PO PRN (20:20)
[2016-08-28] MEDS: TAMSULOSIN (SR) 0.4 MG CAP PO SCH (20:20)
[2016-08-28] MEDS: FLUCONAZOLE 200 MG/NS (PMX) 100 ML IVPB SCH (20:21)
[2016-08-29 02:09] VITALS: BP 109/57; RESP 18
[2016-08-29 06:23] LABS: ADD SCAN DIFF NO
[2016-08-29 06:35] LABS: BASOPHIL # 0.1 10^3/ul (0.0-0.1); BASOPHILS % 1.5 % (0.0-2.0); EOSINOPHILS # 0.8 10^3/ul (0.0-0.5); EOSINOPHILS % 10.7 % (0.0-7.0); HEMATOCRIT 36.5 % (42.0-52.0); HEMOGLOBIN 12.6 g/dl (14.0-18.0); LYMPHOCYTES # 2.2 10^3/ul (0.8-2.9); LYMPHOCYTES % 29.4 % (15.0-51.0); MEAN CORPUSCULAR HGB CONC 34.5 g/dl (32.0-37.0); MEAN CORPUSCULAR VOLUME 95.5 fl (82.0-101.0); MEAN PLATELET VOLUME 8.6 fl (7.4-10.4); MONOCYTE # 0.8 10^3/ul (0.3-0.9); MONOCYTES % 11.1 % (0.0-11.0); NEUTROPHIL # 3.5 10^3/ul (1.6-7.5); NEUTROPHILS % 46.9 % (39.0-77.0); PLATELET COUNT 346 10^3/UL (140-415); RED BLOOD COUNT 3.82 10^6/ul (4.70-6.10); RED CELL DISTRIBUTION WIDTH 11.8 % (11.5-14.5); WHITE BLOOD COUNT 7.4 10^3/ul (4.8-10.8)
[2016-08-29] MEDS: PANTOPRAZOLE (EC) 40 MG TAB PO SCH (06:38)
[2016-08-29 06:57] LABS: CALCIUM 9.1 mg/dl (8.4-10.2); CREATININE 0.88 mg/dl (0.61-1.24); MAGNESIUM 2.1 mg/dl (1.7-2.5); PHOSPHORUS 3.6 mg/dl (2.5-4.9); POTASSIUM 4.5 mmol/L (3.5-5.1)
[2016-08-29 08:04] VITALS: BP 123/61; RESP 18
[2016-08-29] MEDS: COLCHICINE 0.6 MG TAB PO SCH ×2 (08:56→20:37)
[2016-08-29] MEDS: LOSARTAN 50 MG TAB PO SCH (08:56)
[2016-08-29] MEDS: METOPROLOL 25 MG TAB PO SCH ×2 (08:56→20:37)
[2016-08-29] MEDS: NIFEdipine (XL) 30 MG TAB PO SCH ×2 (08:56→20:39)
[2016-08-29] MEDS: ENOXAPARIN 40 MG/0.4 ML SYG SC SCH (08:58)
[2016-08-29] MEDS: LEVOFLOXACIN 500MG/D5W (PMX) 100 ML IVPB SCH (13:38)
[2016-08-29 14:10] VITALS: BP 124/58; RESP 18
--- NOTE | 2016-08-29 15:09 | PN ---
Date/Time of Note Date/Time of Note DATE: 08/29/16 TIME: 15:08 Assessment/Plan VTE Prophylaxis VTE Prophylaxis Intervention: LMWH Lines/Catheters [facility] Saline Lock Urinary Cath still in place: No Assessment/Plan Chief Complaint/Hosp Course 1. Generalized weakness with recurrent falls: multifactorial re: UTI / Gout Continue abx in house for now, PT rec at this time is SNF versus home with home health and front wheel walker MRI C-spine does show cervical stenosis, but patient has no pain in the neck, upper back or upper extremity weakness, neurosurgical consultation appreciated the patient may benefit from spinal surgery patient and family agreeable, will discuss with patient's children 2. Bilateral osteoarthritis of the knee with Acute Gouty episode R knee Continue colchicine 3. Previous CVA , no acute insult 4. Cervical cord stenosis 5. Symptomatic hyponatremia 2/2 #4: resolved 6. Megaloblastic anemia : stable 7. Hypertension now well controlled 8. Mild to Moderate AVR Prophylaxis: Lovenox Problems: Subjective 24 Hr Interval Summary Constitutional: no complaints Exam/Review of Systems Vital Signs Vitals Vital Signs Date Time Temp Pulse Resp B/P Pulse Ox O2 Delivery O2 Flow Rate FiO2 08/29/16 14:10 97.9 66 18 124/58 96 08/28/16 14:45 Room Air 08/25/16 21:00 2.0 Intake and Output 08/28/16 08/28/16 08/29/16 15:00 23:00 07:00 Intake Total 100 ml 1580 ml Output Total 700 ml Balance 100 ml 880 ml Exam Constitutional: alert Psych: confusion Respiratory: clear to auscultation Cardiovascular: regular rate and rhythm Gastrointestinal: soft, No distended Musculoskeletal: nl extremities to inspection Results Result Diagram: 08/29/16 0545 08/29/16 0545 Results 24 hrs Laboratory Tests Test 08/29/16 05:45 White Blood Count 7.4 Red Blood Count 3.82 L Hemoglobin 12.6 L Hematocrit 36.5 L Mean Corpuscular Volume 95.5 Mean Corpuscular Hemoglobin 33.0 Mean Corpuscular Hemoglobin Concent 34.5 Red Cell Distribution Width 11.8 Platelet Count 346 Mean Platelet Volume 8.6 Neutrophils % 46.9 Lymphocytes % 29.4 Monocytes % 11.1 H Eosinophils % 10.7 H Basophils % 1.5 Nucleated Red Blood Cells % 0.0 Neutrophils # 3.5 Lymphocytes # 2.2 Monocytes # 0.8 Eosinophils # 0.8 H Basophils # 0.1 Nucleated Red Blood Cells # 0.0 Sodium Level 136 Potassium Level 4.5 Chloride Level 97 Carbon Dioxide Level 23 Anion Gap 21 H Blood Urea Nitrogen 17 Creatinine 0.88 Glucose Level 93 # Calcium Level 9.1 Phosphorus Level 3.6 Magnesium Level 2.1 Medications Medications Current Medications Ondansetron HCl (Zofran Inj) 4 mg Q6H PRN IV NAUSEA AND/OR VOMITING; Start at 20:30 Acetaminophen/ Hydrocodone Bitart (Oden (5/325)) 1 tab Q6H PRN PO pain Last administered on 08/28/16 20:20; Admin Dose 1 TAB; Start 08/24/16 at 20:30 Pantoprazole (Protonix Tab) 40 mg DAILY@06 PO Last administered on 08/29/16 06 :38; Admin Dose 40 MG; Start 08/25/16 at 06:00 Enoxaparin Sodium 40 mg 40 mg DAILY SC Last administered on 08/29/16 08:58; Admin Dose 40 MG; Start 08/25/16 at 09:00 Fluconazole (Diflucan 200 Mg/ NS (Pmx)) 100 ml @ 100 mls/hr Q24H IVPB Last administered on 08/28/16 20:21; Admin Dose 100 MLS/HR; Start 08/24/16 at 21:15 ; Stop 09/03/16 at 21:14 Hydralazine HCl (Apresoline) 10 mg Q6H PRN IV SBP >160 Last administered on 23:46; Admin Dose 10 MG; Start 08/26/16 at 00:00 Colchicine (Colchicine) 0.6 mg BID PO Last administered on 08/29/16 08:56; Admin Dose 0.6 MG; Start 08/26/16 at 21:00 Losartan Potassium (Cozaar) 100 mg DAILY PO Last administered on 08/29/16 08: 56; Admin Dose 100 MG; Start 08/27/16 at 09:00 Tamsulosin HCl (Flomax) 0.4 mg HS PO Last administered on 08/28/16 20:20; Admin Dose 0.4 MG; Start 08/26/16 at 21:00 Metoprolol Tartrate (Lopressor) 25 mg BID PO Last administered on 08/29/16 08: 56; Admin Dose 25 MG; Start 08/26/16 at 12:00 Nifedipine 30 mg 30 mg BID PO Last administered on 08/29/16 08:56; Admin Dose 30 MG; Start 08/26/16 at 21:00 Levofloxacin/ Dextrose (Levaquin 500mg/ D5W 100 ml (Pmx)) 100 ml @ 100 mls/hr Q24H IVPB Last administered on 08/29/16 13:38; Admin Dose 100 MLS/HR; Start at 13:00; Stop 09/01/16 at 12:59 DANTE KINSEY Aug 29, 2016 15:09
[2016-08-29 19:36] VITALS: BP 122/58; RESP 20
[2016-08-29] MEDS: FLUCONAZOLE 200 MG/NS (PMX) 100 ML IVPB SCH (20:36)
[2016-08-29] MEDS: TAMSULOSIN (SR) 0.4 MG CAP PO SCH (20:38)
[2016-08-30 01:51] VITALS: BP 113/56; RESP 20
[2016-08-30] MEDS: PANTOPRAZOLE (EC) 40 MG TAB PO SCH (05:59)
[2016-08-30 08:08] VITALS: BP 146/65; RESP 18
[2016-08-30] MEDS: COLCHICINE 0.6 MG TAB PO SCH (08:43)
[2016-08-30] MEDS: LOSARTAN 50 MG TAB PO SCH (08:43)
[2016-08-30] MEDS: NIFEdipine (XL) 30 MG TAB PO SCH (08:43)
[2016-08-30] MEDS: METOPROLOL 25 MG TAB PO SCH (08:44)
[2016-08-30] MEDS: ENOXAPARIN 40 MG/0.4 ML SYG SC SCH (09:01)
[2016-08-30 13:15] VITALS: BP 115/58; RESP 18
[2016-08-30] MEDS: LEVOFLOXACIN 500MG/D5W (PMX) 100 ML IVPB SCH (13:31)
[2016-08-30] MEDS ORDERED: LOSA50TA2 PO (13:52)
[2016-08-30] MEDS ORDERED: NIFE30TA2 PO (13:52)
[2016-08-30] MEDS ORDERED: HYDR-3498 PO (13:52)
--- NOTE | 2016-08-30 16:15 | DS ---
Date/Time of Note Date/Time of Note DATE: 08/30/16 TIME: 15:53 Discharge Summary Admission/Discharge Info Admit Date/Time Aug 24, 2016 at 17:22 Discharge Date/Time Discharge Diagnosis 1. Generalized weakness with recurrent falls secondary to severe cervical cord stenosis and UTI Status post antibiotics MRI C-spine does show severe cervical stenosis, neurosurgery evaluation appreciated, family does not want surgery at this time and would like to try rehab prior to surgical intervention 2. Bilateral osteoarthritis of the knee Pain control 3. Previous CVA MRI shows no acute infarct but does show old lacunar infarcts 4. Sepsis secondary to UTI from enterococcus status post antibiotics CT abdomen shows no evidence of enlarged prostate, no further evidence of sepsis at this time 5. Hyponatremia-resolved 6. Megaloblastic anemia : stable 7. Hypertension now well controlled 8. Mild to Moderate AVR Hospital Course Patient is a 75-year-old male who was brought in by his family because of right- sided knee and shoulder pain and recurrent falls. Patient was found to have UTI which was treated with antibiotics, culture showed enterococcus, CT abdomen did not show enlarged prostate. Patient had MRI C-spine that showed severe stenosis, patient was evaluated by neurosurgery and the family was made aware of the degree of stenosis and cord signaling, at this time family prefers to pursue PT and would rather defer to surgery if absolutely needed considering the patient's advanced age. Of note MRI of the brain shows no acute CVA but does show old lacunar infarcts. business area manager arranged for placement in a rehab facility. On the day of discharge patient's vitals, labs and physical exam are stable. Patient had no acute complaints and family's questions were answered. Home Meds Active Scripts Nifedipine (Procardia Xl) 30 Mg Tab.er.24, 30 MG PO BID, #30 TAB Prov:DANTE KINSEY 08/30/16 Losartan Potassium* (Cozaar*) 50 Mg Tablet, 100 MG PO DAILY, #30 TAB Prov:DANTE KINSEY 08/30/16 Hydrocodone Bit-Acetaminophen (Hydrocodone Bit-APAP) 5-325MG Tablet, 1 TAB PO Q4 Y for pain, #30 TAB Prov:DANTE KINSEY 08/30/16 Reported Medications Aspirin* (Aspirin* EC) 81 Mg Tablet.dr, 81 MG PO DAILY, TAB 08/24/16 Discontinued Reported Medications Telmisartan/Hydrochlorothiazid (Micardis Hct 40-12.5 mg Tablet) 1 Each Tablet, 1 EACH PO DAILY, TAB 08/24/16 Losartan-Hydrochlorothiazide (Losartan-HCTZ) 50-12.5 Mg Tab, 1 TAB PO DAILY, TAB 08/24/16 Telmisartan (Telmisartan) 40 Mg Tablet, 40 MG PO DAILY, TAB 08/24/16 Follow-up Plan Follow-up physicians at rehab center Primary Care Provider Care Physician No Primary Time spent on discharge: > 30 minutes DANTE KINSEY Aug 30, 2016 16:04
--- NOTE | 2016-09-03 05:02 | CONS ---
DATE OF ADMISSION: 08/24/2016 DATE OF CONSULTATION: 08/28/2016 REQUESTING PHYSICIAN: Emigdio Oviedo MD. REASON FOR CONSULTATION: Cervical stenosis. HISTORICAL EVENTS: The patient is a 75-year-old right handed male who was brought into the hospital by his family because of multiple falls after which he sustained complaint of right knee and shoulder pain. The patient walks with a walker but has been getting weaker over the past few days and has difficulty ambulating independently. MRI of the brain was performed which showed no evidence of an acute stroke, and an MRI of the cervical spine was performed which showed multi-level cervical spondylosis and stenosis with cord signal change. This is secondary to generalized spondylosis and a disk bulge at C3-C4 where there is cord edema, as well as C4-C5 and C5-C6. This appears to be myelomalacia and appears to be chronic as it is well defined. There is some loss of lordosis. The patient admits that he has felt weaker in his legs. He reports that he has been having progressive weakness for about the past 1 to 2 years. He also states that he had some numbness and tingling in his hands, but he states that this has improved. The patient is a difficult historian because although he speaks Malay, he seems to have poor recollection and overall just states that he feels better. PAST MEDICAL HISTORY: The patient's past medical history is significant for hypertension and benign prostatic hypertrophy. PAST SURGICAL HISTORY: Significant for eye surgery. FAMILY HISTORY: Denies any history of any inherited bleeding disorders or cancer. SOCIAL HISTORY: The patient is a nondrinker. He is a former smoker. The patient lives with his daughter. He recently returned from the [facility] where he apparently had been for many years. MEDICATION: The patient denies taking any routine medications or at least states he cannont remember. PHYSICAL EXAMINATION: VITAL SIGNS: he patient was afebrile with stable vital signs. HEENT: Normocephalic and atraumatic. NECK: Supple with no Lhermitte's or Spurling sign. CARDIAC: Regular rate and rhythm. CHEST: Clear to auscultation. ABDOMEN: Nontender, nondistended, soft. EXTREMITIES: No clubbing, cyanosis or edema. He does have some tenderness of his right knee. MUSCULOSKELETAL: The patient has normal tone and bulk with no atrophy or significant increase in muscle tone. NEUROLOGIC: The patient is awake and alert. He is only oriented to self and place but not the exact year or date. He does follow commands generally and readily and appropriately. His speech is fluent. Cranial nerves II through XII are tested and intact. His motor exam is grossly 5/5 bilaterally. His upper extremities appears to be approximately 4/5 and his lower extremities. He does appear to have some mild hyperreflexia diffusely. No Babinski, but right Darnell sign. No clonus. Sensation is grossly intact to light touch. LABORATORY DATA: White count is 11.5, hemoglobin 13.3, platelet count 306,000. Coagulation panel is within normal limits. Sodium was 135, BUN and creatinine 12 and 0.89. Toxicology screen was negative. IMAGING: I reviewed the patient's CT of the brain performed on 08/24/2016, as well as the radiologist report. The radiologist's impression was that there is no intracranial hemorrhage, no aspect of midline shift, and there is mild generalized atrophy with a slight central predominance and mild microangiopathic changes, a small lacunar infarct in the left basal ganglia, and there is intracranial atherosclerosis. I agree with this interpretation. MRI of the brain was performed on 08/26/2016 and the radiologist's interpretation was similar to the CT with no lacunar infarcts in the bilateral centrum semiovale, left ramsey radiate and left lenticular nucleus as well as the right cerebellar hemisphere. The patient's MRI of the cervical spine radiologist report was reviewed as well and interpretation in the history of present illness. Radiologist stated that there is a 3.8-mm AP C3-C4 left paracentral disk herniation associated extruded fragments and associated annular tear resulting in central canal stenosis and cord edema at C3. A 3-mm AP disk osteophyte complex and disk space narrowing and ventral spondylosis at C4-C5 with similar smaller annular tear at C4-C5, myomalacia of the spinal cord from C4-C5. Bilateral degenerative facet arthropathy and bilateral nerve root canal stenosis at C4- C5. Generalized disk space narrowing and ventral dorsal spondylosis at C5-C6 with associated bilateral bony canal stenosis and lateral degenerative face arthropathy, and a 3.4-mm AP dorsal left paracentral disk osteophyte complex with bilateral degenerative facet arthropathy at C6-C7, and associated bony nerve canal stenosis. At C6-C7 there is a right root canal stenosis and moderate narrowing of the left canal. No evidence of discitis, osteomylelitis or enhancement in the cervical cord. The study was interpreted by Aj Paz MD and I concur with his interpretation. 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 I discussed the patient's signs, symptoms, physical exam and radiographic findings with the patient. The patient has significant cervical myelopathy and has had progressive symptoms. He may have even sustained an acute spinal cord injury although this is unclear as the patient appears to be more of a progressive myelopathy. The patient admits that his symptoms have been progressing over time, but may have gotten worse over the past week and a few days after the fall. The patient can be started on steroids to see if this helps his condition, but overall there is no definitive treatment except for surgical intervention. The patient unfortunately has multi-level spondylosis with cord signal change. The patient would likely require a C3-C4 and C4-C5 discectomy with a corpectomy of C4, a discectomy at C5-C6. However, given the patient's age there is some significant risk with such a procedure especially with regards to swallowing problems or potential prolonged intubation. I explained that the operation probably would not necessarily improve the patient as much as prevent him from getting worse though there is the likelihood he may have some signiicnt improvement. The patient does also appear to have some dementia as suggested by his MRI. He stated that he did not really want to have surgery but asked me to discuss this with his family members to help make a decision. I attempted to call the patient's daughter but there was no answer. Therefore for now the patient should be kept at bed rest and started on steroids and after a discussion with the family a decision regarding surgery can be made. Thank you for allowing me to participate in the care of this patient. Dictated By: Zack Ceja MD /[email or web address]/baylee /Document#: [id number]
== END 2016-08-30 17:20 | DRG 690 ==
LOC: FTE 13:18 → MS3 17:22 → MS2 20:00
PROVIDERS: ADMIT Family Medicine; ATTEND Family Medicine
PROC: 0M9N3ZZ Drainage of Right Knee Bursa and Ligament, Percutaneous Approach (ICD-10-PCS; principal; 2016-08-25)
DX: N39.0 Urinary tract infection, site not specified (principal); G95.89 Other specified diseases of spinal cord; D53.1 Other megaloblastic anemias, not elsewhere classified; M50.03 Cervical disc disorder with myelopathy, cervicothoracic region; E87.1 Hypo-osmolality and hyponatremia; E86.0 Dehydration; B37.49 Other urogenital candidiasis; M17.0 Bilateral primary osteoarthritis of knee; I10 Essential (primary) hypertension; M48.02 Spinal stenosis, cervical region; M25.461 Effusion, right knee; Z86.73 Personal history of transient ischemic attack (TIA), and cerebral infarction without residual deficits; M10.061 Idiopathic gout, right knee; Z91.81 History of falling; B95.2 Enterococcus as the cause of diseases classified elsewhere
CPT/HCPCS: 70450; 70551; 71010; 72156; 73562; 74176; 76775; 76942; 80048; 80061; 80076; 80307; 81001; 82550; 82553; 82607; 82746; 82962; 83036; 83735; 84100; 84439; 84443; 84484; 84560; 85025; 85610; 85651; 85730; 87070; 87086; 89060; 92610; 93005; 93306; 93880; 97110; 97116; 97161; 97530; J0360; J0696; J1650; J1956; J2270; J2405; J2920; J7030